=== PATIENT | female | born 1995 | race Caucasian/White ===

== ENCOUNTER 2020-03-06 10:55 | Outpatient (REF) | payer OTHER, SELFPAY | END 2020-03-06 10:56 | disposition home or self-care (01) | LOC: HO.LAB 10:55 | PROVIDERS: PCP Internal Medicine; Visit Provider Internal Medicine | DX: Z20.828 Contact with and (suspected) exposure to other viral communicable diseases (principal) | CPT/HCPCS: C9803; U0003 ==

== ENCOUNTER 2021-03-26 11:15 | Outpatient (REF) | payer OTHER, SELFPAY | END 2021-03-26 11:16 | disposition home or self-care (01) | LOC: HO.HMGCLDS 11:15 | PROVIDERS: Visit Provider Internal Medicine | DX: Z20.822 Contact with and (suspected) exposure to COVID-19 (principal) | CPT/HCPCS: C9803; U0003; U0005 ==

== ENCOUNTER 2022-01-21 17:25 | Emergency (ER) | payer SELFPAY ==
--- NOTE | ~2022-01-21 | CT_ITS ---
EXAMINATION: CT ABDOMEN AND PELVIS WITH CONTRAST CLINICAL INFORMATION: Left CVA tenderness and lower quadrant pain COMPARISON: Pelvic ultrasound from earlier today TECHNIQUE: Multidetector volumetric images were obtained from the superior aspect of the liver through the pubic symphysis following administration 85 mL of Omnipaque 350 intravenous contrast. Sagittal and coronal reformatted images were obtained on the technologist's workstation. Oral contrast: No This CT examination was performed using dose optimization techniques as appropriate, variously including the following: *Automated exposure control *Adjustment of mA and/or kV according to patient size (this includes techniques or standardized protocols for targeted exams where dose is matched to indication/reason for exam; i.e. extremities or head) *Use of iterative reconstruction technique DLP: 503 mGy-cm FINDINGS: LUNG BASES: The visualized lung bases are unremarkable. LIVER, GALLBLADDER, AND BILIARY TREE: The liver is normal in size, shape, and attenuation. No focal hepatic lesion or biliary ductal dilatation is present. The gallbladder is unremarkable with no evidence of radiopaque gallstones, gallbladder wall thickening, or obvious pericholecystic inflammatory changes. PANCREAS: Unremarkable. SPLEEN: Unremarkable. ADRENAL GLANDS: Unremarkable. KIDNEYS AND URETERS: The kidneys are normal in size, shape, and attenuation. No hydronephrosis, hydroureter, or calculi seen. No perinephric stranding. BLADDER: Mild mural prominence, which could be due to underdistention though cystitis cannot be excluded. GASTROINTESTINAL TRACT: No evidence of bowel obstruction or significant wall thickening. Appendix appears nondilated. No free fluid or free air is seen. ABDOMINAL WALL: No significant hernia is appreciated. LYMPH NODES: Normal. VASCULAR: Unremarkable. PELVIC VISCERA: Unremarkable. OSSEOUS STRUCTURES: Unremarkable. CT/CT abdomen pelvis w IV con IMPRESSION: Mild mural prominence of the urinary bladder, which could be due to underdistention though cystitis cannot be excluded; correlation with urinalysis is recommended. No additional acute findings identified in the abdomen/pelvis.
--- NOTE | ~2022-01-21 | US_ITS ---
EXAMINATION: US PELVIS CLINICAL INFORMATION: Left lower quadrant pain, rule out torsion COMPARISON: None TECHNIQUE: Ultrasound of the pelvis is performed using both transabdominal and transvaginal transducers along with Doppler. Transvaginal imaging is performed due to inadequate visualization transabdominally. FINDINGS: Uterus: The uterus is anteverted and measures 6.2 x 3.8 x 4.5 cm. The double wall endometrial thickness is 0.6 cm. The uterus is smooth in contour and has normal myometrial echogenicity. No visible fibroid. Adnexa: Both ovaries are visualized. Normal arterial and venous waveforms noted in the bilateral ovaries. Trace nonspecific pelvic free fluid noted. Right ovary measures 3.0 x 1.8 x 2.1 and appears unremarkable with dominant follicles noted. Left ovary measures 4.0 x 1.2 x 2.5 and appears unremarkable with dominant follicle is noted. US/US pelvic ovarian doppler IMPRESSION: Trace nonspecific pelvic free fluid, which may be physiologic. No additional acute findings identified.
--- NOTE | ~2022-01-21 | US_ITS ---
EXAMINATION: US PELVIS CLINICAL INFORMATION: Left lower quadrant pain, rule out torsion COMPARISON: None TECHNIQUE: Ultrasound of the pelvis is performed using both transabdominal and transvaginal transducers along with Doppler. Transvaginal imaging is performed due to inadequate visualization transabdominally. FINDINGS: Uterus: The uterus is anteverted and measures 6.2 x 3.8 x 4.5 cm. The double wall endometrial thickness is 0.6 cm. The uterus is smooth in contour and has normal myometrial echogenicity. No visible fibroid. Adnexa: Both ovaries are visualized. Normal arterial and venous waveforms noted in the bilateral ovaries. Trace nonspecific pelvic free fluid noted. Right ovary measures 3.0 x 1.8 x 2.1 and appears unremarkable with dominant follicles noted. Left ovary measures 4.0 x 1.2 x 2.5 and appears unremarkable with dominant follicle is noted. US/US pelvic and transvaginal IMPRESSION: Trace nonspecific pelvic free fluid, which may be physiologic. No additional acute findings identified.
[2022-01-21 17:39] VITALS: BP 124/61; PULSE 88; RESP 18; TEMP 37.2; O2SAT 98; BMI 26.6
[2022-01-21 17:51] LABS: Basophils Percent Auto 0.6 % (0-2); Eosinophils Absolute Auto 0.1 X10*3/uL (0.0-0.4); Eosinophils Percent Auto 0.7 % (0-4); Hematocrit 41.3 % (37.0-47.0); Hemoglobin 14.2 g/dl (12.0-16.0); Imm Gran Abs Auto 0.02 X10*3/uL (0.00-0.03); Imm Gran Pct Auto 0.3 % (0.0-0.4); Lymphocytes Percent Auto 41.7 % (20-40); MANUAL DIFF FLAG NO; Mean Corpuscular HGB Conc 34.4 g/dl (31.0-35.0); Mean Corpuscular Hemoglobin 31.5 pg (27.0-33.0); Mean Corpuscular Volume 91.6 fL (80.0-98.0); Mean Platelet Volume 9.7 fL (9.4-12.3); Monocytes Absolute Auto 0.5 X10*3/uL (0.1-1.2); Monocytes Percent Auto 7.4 % (2-11); Neutrophils Absolute Auto 3.5 x10*3/uL (2.0-8.3); Neutrophils Percent Auto 49.3 % (45-73); Platelet Count 294 X10*3/uL (160-400); Red Blood Count 4.51 X10*6/uL (4.20-5.50); Red Cell Distribution Width 11.9 % (11.0-16.0); White Blood Count 7.2 X10*3/uL (4.8-10.8)
[2022-01-21 18:23] LABS: Alanine Aminotransferase 19 U/L (0-31); Albumin Level 4.6 g/dL (3.5-5.0); Alkaline Phosphatase 52 U/L (39-117); Anion Gap 18 (12-20); Aspartate Amino Transferase 25 U/L (5-31); Bilirubin Direct < 0.2 mg/dL (0.0-0.5); Bilirubin Total 0.3 mg/dL (0.0-1.0); Blood Urea Nitrogen 13 mg/dL (9-16); Calcium 9.9 mg/dL (8.4-10.2); Carbon Dioxide 21 mmol/L (22-29); Chloride 105 mmol/L (96-108); Creatinine Clr Calc Pharmacy 111.9; Estimated Glomerular Filt Rate > 60; Glucose Random 88 mg/dL (60-115); Lipase 62 U/L (8-78); Potassium 3.8 mmol/L (3.3-5.1); Sodium 140 mmol/L (135-145); Total Protein 7.9 g/dL (6.5-8.0)
[2022-01-21 18:29] LABS: HCG Quantitative < 2 mIU/mL
[2022-01-21 22:45] VITALS: BP 118/66; PULSE 82; RESP 20; TEMP 37.1; O2SAT 99
[2022-01-21 23:22] LABS: Appearance Urine Clear; Color Urine Yellow; Glucose Urine UA Negative (Negative); Leukocyte Esterase Urine Negative (Negative); Nitrite Urine Negative (Negative); PH 6.5 (5.0-9.0); Specific Gravity - Urine <= 1.005 (1.005-1.025); Urine Blood Negative (Negative); Urine Ketones Negative (Negative); Urine Protein Negative (Neg-Trace)
[2022-01-21 23:25] VITALS: BP 117/84; PULSE 70; RESP 16; TEMP 36.8; O2SAT 99
[2022-01-21 23:25] LABS: UPreg QC Valid YES; Urine Pregnancy NEGATIVE (NEGATIVE)
--- OUTSIDE RECORDS SUMMARY | 2022-01-21 23:36 | XMS_ITS | Continuity of Care Document ---
:1995 Author Organization [facility] Address [address] [place] [id number]- Care Team Providers Name Role Phone Lyubov Priest DO Primary Care Physician Encounter [facility] Date(s): 03/17/19 - 03/17/[address] [address]- [facility] Attending Physician: Lyubov Priest DO Allergies, Adverse Reactions, Alerts Substance Reaction Severity Status NKA Active
--- NOTE | 2022-01-21 23:40 | ED_ITS ---
HPI - Abdominal Pain General Chief Complaint: Abdominal Pain <ROLLY Chin - Last Filed: 01/22/22 02:37> Stated Complaint: Anxiety, depression,abd pain <ROLLY Chin - Last Filed: 01/22/22 02:37> Time Seen by Provider: 01/21/22 23:37 <ROLLY Chin - Last Filed: 01/22/22 02:37> Source: patient <ROLLY Chin - Last Filed: 01/22/22 02:37> Mode of arrival: ambulatory <ROLLY Chin Last Filed: 01/22/22 02:37> Limitations: no limitations <ROLLY Chin - Last Filed: 01/22/22 02:37> History of Present Illness HPI narrative: Time a 6-year-old female with no pertinent past medical history presents to the emergency department progressively worsening left lower quadrant abdominal pain. Patient describes the pain as sharp pain that radiates to her pelvic area as well as left flank. Patient states she has been experiencing this pain for the last 3 months however it has been progressively worsening over the past few days. She rates her current pain as a 9/10. Patient states she has been seeing a provider at [facility] and was diagnosed last Thursday with PID in which she was given antibiotics. However she states that the pain is still occurring and worse today. Additionally patient reports nausea, headaches, dizziness, weakness, subjective fevers. Patient reports that her periods over the last 3 months have been heavier as well as she has been spotting. Patient reports she was last sexually active 1 month ago, and has since been tested for STDs that came back negative. Patient reports yesterday she experienced a creamy discharge with no odor. Patient extremely tearful, and anxious secondary to pain. Denies SI, HI. Denies visual, auditory and tactile hallucinations. Tells me this pain is scaring her. Denies chest pain, shortness of breath, vomiting, diarrhea, constipation, vaginal bleeding, pain w/ intercourse. <ROLLY Chin Last Filed: 01/22/22 02:37> MD elicited complaint: abdominal pain <ROLLY Chin - Last Filed: 01/22/22 02:37> Related Data Home Medications: Previous Rx's Medication Instructions Recorded morphine 15 mg immediate release 15 mg PO Q4-6H PRN pain #10 tabs 01/22/22 tablet ondansetron 4 mg disintegrating 4 mg PO Q6-8H PRN nausea and 01/22/22 tablet vomiting #14 tabs <ROLLY Chin - Last Filed: 01/22/22 02:37> Allergies/Adverse Reactions: Allergies Allergy/AdvReac Type Severity Reaction Status Date / Time No Known Allergies Allergy Unverified 12/08/19 18:33 <ROLLY Chin Last Filed: 01/22/22 02:37> Review of Systems Review of Systems Constitutional : No Weight loss, + Fever, + Chills, No Fatigue, No Malaise ENT/Mouth : No sore throat, No Rhinorrhea Eyes: No Eye Pain, No Swelling, No Redness Cardiovascular : No Chest Pain, No SOB, No Dyspnea on Exertion, No Orthopnea, No Edema, No Palpitations Respiratory : No Cough, No Sputum, No Wheezing Gastrointestinal : No Nausea, No Vomiting, No Diarrhea, No Constipation, + abdominal Pain, No Hematochezia, No Melena Genitourinary : No Dysuria, No Urinary Frequency, No Hematuria, Musculoskeletal : No joint pain, No Myalgias, No Joint Swelling Skin : No Skin Lesions, No rash Neuro : + Weakness, No Numbness, + Dizziness, + Headache Psych : + Anxiety/Panic, No Depression All other systems reviewed and are negative <ROLLY Chin Last Filed: 01/22/22 02:37> Yes all other systems are reviewed and are negative <ROLLY Chin - Last Filed: 01/22/22 02:37> [facility] Past Medical History Attestation statement: The following information was validated with the patient. <ROLLY Chin - Last Filed: 01/22/22 02:37> Source: old records reviewed and nursing notes reviewed <ROLLY Chin Last Filed: 01/22/22 02:37> Social History Social History: Social History Smoked in Last 30 Days: Yes Use of substances other than those prescribed or required for medical reasons: Yes Substance Use Type: Marijuana Advance Directives: No Advance Directives Information Provided: No Patient : No <ROLLY Chin - Last Filed: 01/22/22 02:37> Physical Exam ED Vital Signs: Vital Signs - 24 hr 01/21/22 17:39 01/21/22 22:45 01/21/22 23:25 Temperature 98.9 F 98.8 F 98.2 F Pulse Rate 88 82 70 Respiratory Rate 18 20 16 Blood Pressure 124/61 118/66 117/84 Pulse Oximetry 98 99 99 Oxygen Delivery Method Room Air Room Air Room Air 01/22/22 00:34 01/22/22 01:12 01/22/22 04:06 Temperature 98.1 F 97.9 F Pulse Rate 70 76 Respiratory Rate 22 H 20 22 H Blood Pressure 117/84 114/65 Pulse Oximetry 99 100 Oxygen Delivery Method Room Air Room Air BMI result Body Mass Index 26.6 vss <ROLLY Chin - Last Filed: 01/22/22 02:37> Vital Signs - 24 hr 01/21/22 17:39 01/21/22 22:45 01/21/22 23:25 Temperature 98.9 F 98.8 F 98.2 F Pulse Rate 88 82 70 Respiratory Rate 18 20 16 Blood Pressure 124/61 118/66 117/84 Pulse Oximetry 98 99 99 Oxygen Delivery Method Room Air Room Air Room Air 01/22/22 00:34 01/22/22 01:12 01/22/22 04:06 Temperature 98.1 F 97.9 F Pulse Rate 70 76 Respiratory Rate 22 H 20 22 H Blood Pressure 117/84 114/65 Pulse Oximetry 99 100 Oxygen Delivery Method Room Air Room Air BMI result Body Mass Index 26.6 <Samir Sharp MD - Last Filed: 01/22/22 05:54> Appearance: Alert.? Oriented X3.? No acute distress.? Patient id extremely anxious, tearful. Head: Normocephalic, atraumatic, no step-offs or deformities Eyes: Pupils equal, round and reactive to light.? CVS: Normal heart rate and rhythm.? Pulses normal.? Respiratory: No respiratory distress.? Breath sounds normal.? Abdomen: Soft, nondistended. Tenderness upon palpation to LLQ? Skin: Skin warm and dry.? Normal skin color.? Normal skin turgor.? Extremities: No lower extremity edema.? No calf ttp. 5/5 strength to bilateral upper and lower extremities Sensative: Normal external genitalia, no low lumps masses or lesions. Normal vaginal canal and cervix. Cervical os closed. No lumps or masses. Patient reports discomfort with pelvic exam and bimanual bilaterally. Scant amount of clear, discharge in vaginal canal. Neuro: Oriented X 3.? No motor deficit.? No sensory deficit. CN 2-12 intact. Normal finger-to nose. <ROLLY Chin - Last Filed: 01/22/22 02:37> Course Reevaluation(s) Reevaluation #1: CBC appears to be within normal limits. Chemistry with no acute electrolyte abnormalities requiring intervention. Normal lipase. Beta hCG negative unlikely that this is an ectopic . UA clean without infection. Swabs for chlamydia, gonorrhea, BV, Trichomonas, Flora were obtained and are pending. Abdominal CT and pelvic ultrasound pending at this time. <ROLLY Chin - Last Filed: 01/22/22 02:37> Time: 01:16 <ROLLY Chin - Last Filed: 01/22/22 02:37> Reevaluation #2: Patient's pain well controlled. Patient no longer crying or screaming out in pain. Sign-out will be given to Dr.Sciaruto coats pending at this time. Disposition pending imaging and re-evaluation. <RLOLY Chin - Last Filed: 01/22/22 02:37> Time: 02:30 <ROLLY Chin Last Filed: 01/22/22 02:37> Reevaluation #3: The patient got some relief with the 2 doses of morphine (4 mg and 2 mg) however her pain was still 6/10 therefore she was ordered to get morphine 4 mg IV and Zofran 4 mg IV. I did discuss the negative workup with the patient and she became very frustrated and very tearful since there was no clear cause for her pain. The patient will be discharged home and was advised to take Tylenol and ibuprofen and for pain not relieved by these medications she was prescribed morphine. She was also prescribe Zofran for nausea and vomiting. She will be referred to her our macaroni maker, Dr. Leary for further evaluation. <Samir Sharp MD - Last Filed: 01/22/22 05:54> Time: 05:53 <Samir Sharp MD - Last Filed: 01/22/22 05:54> MDM - Abdominal Pain MDM Narrative Medical decision making narrative: 1141 26-year-old female presents to the emergency department with progressively worsening left lower quadrant pain radiating to left flank and pelvic region over the last few days. Physical exam reveals normal rate and rhythm, lungs clear to auscultation bilaterally, abdomen soft nondistended tender to lower left quadrant. Positive left CVA tenderness to the left hand side. Pelvic exam/sensitive exam with no acute findings other than patient reports discomfort with pelvic exam and bimanual. Unable to palpate any lumps or masses. Scant amount of normal color discharge within the vaginal canal. Patient appears extremely anxious, tearful upon my exam. Plan at this time is to rule out ovarian torsion, ectopic , ovarian cysts, intra-abdominal processes. Unlikely that this is acute abdomen, kidney stones. Will rule out UTI as well. As well as electrolyte abnormalities. Suspected anxiety. Plan at this time is to obtain basic labs, imaging, urine, swabs for gonorrhea, chlamydia, bacterial vaginosis, Trichomonas. <ROLLY Chin - Last Filed: 01/22/22 02:37> Medical Records Attestation: I reviewed the patient's medical records. <ROLLY Chin - Last Filed: 01/22/22 02:37> Lab Data Attestation: I reviewed the patient's lab results. <ROLLY Chin - Last Filed: 01/22/22 02:37> Result diagrams: : 01/21/22 17:46 01/21/22 17:46 <ROLLY Chin - Last Filed: 01/22/22 02:37> Labs: Lab Results 01/21/22 01/21/22 01/21/22 Range/Units 17:46 17:46 23:14 WBC 7.2 (4.8-10.8) X10*3/uL RBC 4.51 (4.20-5.50) X10*6/uL Hgb 14.2 (12.0-16.0) g/dl Hct 41.3 (37.0-47.0) % MCV 91.6 (80.0-98.0) fL MCH 31.5 (27.0-33.0) pg MCHC 34.4 (31.0-35.0) g/dl RDW 11.9 (11.0-16.0) % Plt Count 294 (160-400) X10*3/uL MPV 9.7 (9.4-12.3) fL Immature Gran % (Auto) 0.3 (0.0-0.4) % Neut % (Auto) 49.3 (45-73) % Lymph % (Auto) 41.7 H (20-40) % [place] % (Auto) 7.4 (2-11) % Eos % (Auto) 0.7 (0-4) % Baso % (Auto) 0.6 (0-2) % Lymph # (Auto) 3.0 (1.2-4.9) X10*3/uL [place] # (Auto) 0.5 (0.1-1.2) X10*3/uL Eos # (Auto) 0.1 (0.0-0.4) X10*3/uL Baso # (Auto) 0.0 (0.0-0.2) X10*3/uL Abs Immat Gran (auto) 0.02 (0.00-0.03) X10*3/uL Absolute Neuts (auto) 3.5 (2.0-8.3) x10*3/uL Absolute Nucleated RBC 0.000 (0.0-0.012) X10*3/uL Nucleated RBC % (auto) 0.0 (0.0-0.2) /100WBC Sodium 140 (135-145) mmol/L Potassium 3.8 (3.3-5.1) mmol/L Chloride 105 (96-108) mmol/L Carbon Dioxide 21 L (22-29) mmol/L Anion Gap 18 (12-20) BUN 13 (9-16) mg/dL Creatinine 0.76 (0.5-1.4) mg/dL Estim Creat Clear Calc 111.9 Estimated GFR > 60 Random Glucose 88 (60-115) mg/dL Calcium 9.9 (8.4-10.2) mg/dL Total Bilirubin 0.3 (0.0-1.0) mg/dL Direct Bilirubin < 0.2 (0.0-0.5) mg/dL AST 25 (5-31) U/L ALT 19 (0-31) U/L Alkaline Phosphatase 52 (39-117) U/L Total Protein 7.9 (6.5-8.0) g/dL Albumin 4.6 (3.5-5.0) g/dL Lipase 62 (8-78) U/L Beta HCG, Quant < 2 mIU/mL Urine Color Yellow Urine Appearance Clear Urine pH 6.5 (5.0-9.0) Ur Specific Liberal <= 1.005 (1.005-1.025) Urine Protein Negative (Neg-Trace) mg/dL Urine Glucose (UA) Negative (Negative) mg/dL Urine Ketones Negative (Negative) mg/dL Urine Blood Negative (Negative) Urine Nitrite Negative (Negative) Ur Leukocyte Esterase Negative (Negative) Urine Test (NEGATIVE) 01/21/22 Range/Units 23:14 WBC (4.8-10.8) X10*3/uL RBC (4.20-5.50) X10*6/uL Hgb (12.0-16.0) g/dl Hct (37.0-47.0) % MCV (80.0-98.0) fL MCH (27.0-33.0) pg MCHC (31.0-35.0) g/dl RDW (11.0-16.0) % Plt Count (160-400) X10*3/uL MPV (9.4-12.3) fL Immature Gran % (Auto) (0.0-0.4) % Neut % (Auto) (45-73) % Lymph % (Auto) (20-40) % [place] % (Auto) (2-11) % Eos % (Auto) (0-4) % Baso % (Auto) (0-2) % Lymph # (Auto) (1.2-4.9) X10*3/uL [place] # (Auto) (0.1-1.2) X10*3/uL Eos # (Auto) (0.0-0.4) X10*3/uL Baso # (Auto) (0.0-0.2) X10*3/uL Abs Immat Gran (auto) (0.00-0.03) X10*3/uL Absolute Neuts (auto) (2.0-8.3) x10*3/uL Absolute Nucleated RBC (0.0-0.012) X10*3/uL Nucleated RBC % (auto) (0.0-0.2) /100WBC Sodium (135-145) mmol/L Potassium (3.3-5.1) mmol/L Chloride (96-108) mmol/L Carbon Dioxide (22-29) mmol/L Anion Gap (12-20) BUN (9-16) mg/dL Creatinine (0.5-1.4) mg/dL Estim Creat Clear Calc Estimated GFR Random Glucose (60-115) mg/dL Calcium (8.4-10.2) mg/dL Total Bilirubin (0.0-1.0) mg/dL Direct Bilirubin (0.0-0.5) mg/dL AST (5-31) U/L ALT (0-31) U/L Alkaline Phosphatase (39-117) U/L Total Protein (6.5-8.0) g/dL Albumin (3.5-5.0) g/dL Lipase (8-78) U/L Beta HCG, Quant mIU/mL Urine Color Urine Appearance Urine pH (5.0-9.0) Ur Specific Liberal (1.005-1.025) Urine Protein (Neg-Trace) mg/dL Urine Glucose (UA) (Negative) mg/dL Urine Ketones (Negative) mg/dL Urine Blood (Negative) Urine Nitrite (Negative) Ur Leukocyte Esterase (Negative) Urine Test NEGATIVE (NEGATIVE) <ROLLY Chin - Last Filed: 01/22/22 02:37> Lab Results 01/21/22 01/21/22 01/21/22 Range/Units 17:46 17:46 23:14 WBC 7.2 (4.8-10.8) X10*3/uL RBC 4.51 (4.20-5.50) X10*6/uL Hgb 14.2 (12.0-16.0) g/dl Hct 41.3 (37.0-47.0) % MCV 91.6 (80.0-98.0) fL MCH 31.5 (27.0-33.0) pg MCHC 34.4 (31.0-35.0) g/dl RDW 11.9 (11.0-16.0) % Plt Count 294 (160-400) X10*3/uL MPV 9.7 (9.4-12.3) fL Immature Gran % (Auto) 0.3 (0.0-0.4) % Neut % (Auto) 49.3 (45-73) % Lymph % (Auto) 41.7 H (20-40) % [place] % (Auto) 7.4 (2-11) % Eos % (Auto) 0.7 (0-4) % Baso % (Auto) 0.6 (0-2) % Lymph # (Auto) 3.0 (1.2-4.9) X10*3/uL [place] # (Auto) 0.5 (0.1-1.2) X10*3/uL Eos # (Auto) 0.1 (0.0-0.4) X10*3/uL Baso # (Auto) 0.0 (0.0-0.2) X10*3/uL Abs Immat Gran (auto) 0.02 (0.00-0.03) X10*3/uL Absolute Neuts (auto) 3.5 (2.0-8.3) x10*3/uL Absolute Nucleated RBC 0.000 (0.0-0.012) X10*3/uL Nucleated RBC % (auto) 0.0 (0.0-0.2) /100WBC Sodium 140 (135-145) mmol/L Potassium 3.8 (3.3-5.1) mmol/L Chloride 105 (96-108) mmol/L Carbon Dioxide 21 L (22-29) mmol/L Anion Gap 18 (12-20) BUN 13 (9-16) mg/dL Creatinine 0.76 (0.5-1.4) mg/dL Estim Creat Clear Calc 111.9 Estimated GFR > 60 Random Glucose 88 (60-115) mg/dL Calcium 9.9 (8.4-10.2) mg/dL Total Bilirubin 0.3 (0.0-1.0) mg/dL Direct Bilirubin < 0.2 (0.0-0.5) mg/dL AST 25 (5-31) U/L ALT 19 (0-31) U/L Alkaline Phosphatase 52 (39-117) U/L Total Protein 7.9 (6.5-8.0) g/dL Albumin 4.6 (3.5-5.0) g/dL Lipase 62 (8-78) U/L Beta HCG, Quant < 2 mIU/mL Urine Color Yellow Urine Appearance Clear Urine pH 6.5 (5.0-9.0) Ur Specific Liberal <= 1.005 (1.005-1.025) Urine Protein Negative (Neg-Trace) mg/dL Urine Glucose (UA) Negative (Negative) mg/dL Urine Ketones Negative (Negative) mg/dL Urine Blood Negative (Negative) Urine Nitrite Negative (Negative) Ur Leukocyte Esterase Negative (Negative) Urine Test (NEGATIVE) 01/21/22 Range/Units 23:14 WBC (4.8-10.8) X10*3/uL RBC (4.20-5.50) X10*6/uL Hgb (12.0-16.0) g/dl Hct (37.0-47.0) % MCV (80.0-98.0) fL MCH (27.0-33.0) pg MCHC (31.0-35.0) g/dl RDW (11.0-16.0) % Plt Count (160-400) X10*3/uL MPV (9.4-12.3) fL Immature Gran % (Auto) (0.0-0.4) % Neut % (Auto) (45-73) % Lymph % (Auto) (20-40) % [place] % (Auto) (2-11) % Eos % (Auto) (0-4) % Baso % (Auto) (0-2) % Lymph # (Auto) (1.2-4.9) X10*3/uL [place] # (Auto) (0.1-1.2) X10*3/uL Eos # (Auto) (0.0-0.4) X10*3/uL Baso # (Auto) (0.0-0.2) X10*3/uL Abs Immat Gran (auto) (0.00-0.03) X10*3/uL Absolute Neuts (auto) (2.0-8.3) x10*3/uL Absolute Nucleated RBC (0.0-0.012) X10*3/uL Nucleated RBC % (auto) (0.0-0.2) /100WBC Sodium (135-145) mmol/L Potassium (3.3-5.1) mmol/L Chloride (96-108) mmol/L Carbon Dioxide (22-29) mmol/L Anion Gap (12-20) BUN (9-16) mg/dL Creatinine (0.5-1.4) mg/dL Estim Creat Clear Calc Estimated GFR Random Glucose (60-115) mg/dL Calcium (8.4-10.2) mg/dL Total Bilirubin (0.0-1.0) mg/dL Direct Bilirubin (0.0-0.5) mg/dL AST (5-31) U/L ALT (0-31) U/L Alkaline Phosphatase (39-117) U/L Total Protein (6.5-8.0) g/dL Albumin (3.5-5.0) g/dL Lipase (8-78) U/L Beta HCG, Quant mIU/mL Urine Color Urine Appearance Urine pH (5.0-9.0) Ur Specific Liberal (1.005-1.025) Urine Protein (Neg-Trace) mg/dL Urine Glucose (UA) (Negative) mg/dL Urine Ketones (Negative) mg/dL Urine Blood (Negative) Urine Nitrite (Negative) Ur Leukocyte Esterase (Negative) Urine Test NEGATIVE (NEGATIVE) <Samir Sharp MD - Last Filed: 01/22/22 05:54> Critical Care Time Critical Care Time Critical Care Time: No <ROLLY Chin - Last Filed: 01/22/22 02:37> Discharge Plan Discharge Clinical Impression: Abdominal pain, Anxiety, Cystitis <ROLLY Chin - Last Filed: 01/22/22 02:37> Patient Disposition: Home, Self-Care <ROLLY Chin - Last Filed: 01/22/22 02:37> Instructions: Abdominal Pain (ED), Anxiety (ED) <ROLLY Chin - Last Filed: 01/22/22 02:37> Additional Instructions: You had the following tests which were normal: Complete blood count, comprehensive metabolic panel, lipase, urinalysis. Your urine was sent for Flora chlamydia, Gardnerella, gonorrhea and Trichomonas. These tests are pending and you can check these results on the patient portal or your doctor can get these results for you. Your CT scan of the abdomen pelvis did not reveal a clear cause for your pain, there was some thickening of the wall of the bladder which is nonspecific. Your pelvic ultrasound revealed trace amount of free fluid in the pelvis which is nonspecific with no other abnormal findings. At this time, I do not have a clear cause for your pain. I also want you to follow-up with our gynecology, Dr. Leary to see if he can determine the cause of your pain. Take ibuprofen 200 mg pills, 3 pills every 6 hours as needed for pain. Take Tylenol (acetaminophen) 2 pills every 4-6 hours as needed for pain. For pain not relieved by ibuprofen or Tylenol take morphine 15 mg pills, 1 pill every 4 hours as needed for pain. This medication will make you sleepy, do not drive or work while taking this medication. Morphine is a narcotic medication and can be addicting. If you are concerned about addiction you can ask the pharmacist for less pills or do not get this prescription filled. Take Zofran ODT 4 mg pills, 1 pill dissolved in your mouth every 8 hours as needed for nausea and vomiting. Follow-up with your doctor in 2 days. Please return to the emergency department if your symptoms get worse or if you develop any symptoms that are concerning to you. <ROLLY Chin - Last Filed: 01/22/22 02:37> Prescriptions: New morphine 15 mg tablet 15 mg PO Q4-6H PRN (Reason: pain) Qty: 10 0RF Rx Instructions: The patient may ask for partial fill; Partial Fill upon patient request. ondansetron 4 mg tablet,disintegrating 4 mg PO Q6-8H PRN (Reason: nausea and vomiting) Qty: 14 0RF <ROLLY Chin Last Filed: 01/22/22 02:37> [place]: [facility] [place]Provider Group] - 1 day Physician,Jeanie Dubois [Primary Care Provider] - 2 days Richard Leary MD [Physician] - 1 week <ROLLY Chin - Last Filed: 01/22/22 02:37> Stand Alone Forms: Work/School Release <ROLLY Chin - Last Filed: 01/22/22 02:37>
[2022-01-22 00:34] VITALS: BP 117/84; PULSE 70; RESP 22; TEMP 36.7; O2SAT 99
[2022-01-22 01:12] VITALS: RESP 20
[2022-01-22] MEDS: Morphine Sulfate 4 MG/ML CARTRIDGE IVPUSH ×2 (01:12→05:58)
[2022-01-22] MEDS: LORazepam 1 MG TABLET PO (01:14)
[2022-01-22] MEDS: iohexoL 350 MG/ML 100 ML INFUS..BTL 85 ML IV (02:30)
[2022-01-22] MEDS: Morphine Sulfate 2 MG/ML CARTRIDGE IVPUSH (04:00)
[2022-01-22 04:06] VITALS: BP 114/65; PULSE 76; RESP 22; TEMP 36.6; O2SAT 100
[2022-01-22] MEDS: ondansetron HCL 4 MG/2 ML VIAL IVPUSH ×2 (04:08→05:59)
[2022-01-22 13:09] LABS: BV Int Neg Control Negative (Negative); BV Int Pos Control Positive (Positive)
[2022-01-22 15:20] LABS: CT PCR NOT DETECTED (Not Detect.); NG PCR NOT DETECTED (Not Detect.)
== END 2022-01-22 06:42 | disposition home or self-care (01) ==
PROVIDERS: Internal Medicine; Physician Assistant; Emergency Provider Emergency Medicine Emergency Medical Services
DX: N30.90 Cystitis, unspecified without hematuria (principal); F41.9 Anxiety disorder, unspecified; R10.9 Unspecified abdominal pain; F32.A Depression, unspecified
CPT/HCPCS: 36415; 74177; 76830; 76856; 80053; 81003; 81025; 82248; 83690; 84702; 85025; 87480; 87491; 87510; 87591; 87660; 93975; 96374; 96375; 96376; 99284; J2270; J2405; Q9967

== ENCOUNTER 2025-02-24 10:54 | Outpatient (AMB) | payer OTHER, SELFPAY ==
--- OUTSIDE RECORDS SUMMARY | 2023-06-11 17:29 | XMS_ITS | Encounter Summary ---
Author Organization [facility] Address [address] [place] [address] Phone Care Team Providers Care Litigation Specialist Name Role Phone VuDaya CNM Primary Care Provider [phone] Encounter Details Date Type Department Care Team (Late st Contact Info) Description 06/11/2023 6:29 PM EDT Hospital Encounter [facility] [address] [place] [address] [phone] Skyler Florian, WEATHER OBSERVER [address] [place] [address] [email or web address] Social History Tobacco Use Types Packs/Day Years Used Date Smoking Tobacco: Never Smokeless Tobacco: Never Alcohol Use Standard Drinks/Week Comments Yes 0 (1 standard drink = 0.6 oz pur e alcohol) Education Answer Date Recorded Are you interested in more education? Not on lyndon e 07/18/2022 Are you concerned about learning? Not on file 07/18/2022 No 07/18/2022 No 07/18/2022 Digital Access Answer Date Recorded No 08/16/2022 No 08/16/2022 Reliable internet access at home? Not on file 08/16/2022 Device with a working camera? Not on file Education Answer Date Recorded What is the highest level of school you have completed or the highest degree you have received? 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 Narrative 06/11/2023 6:56 PM EDT XR ANKLE 3 OR MORE VIEWS (RIGHT), XR FOOT 3 OR MORE VIEWS (RIGHT) Referring clinician's provided indication for this examination in [facility]: S/P Fall; inversion 6-7 days ago. Pain at lateral malleolus and 5th metatarsal. COMPARISON: None FINDINGS: No fracture. Normal alignment. Symmetric ankle mortise. Normal joint spaces. No soft tissue swelling or ankle effusion. Procedure Note Renea Mckeon MD - 06/11/2023 XR ANKLE 3 OR MORE VIEWS (RIGHT), XR FOOT 3 OR MORE VIEWS (RIGHT) Referring clinician's provided indication for this examination in Epic:S/P Fall; inversion 6-7 days ago. Pain at lateral malleolus and 5thmetatarsal. COMPARISON: None FINDINGS: No fracture. Normal alignment. Symmetric ankle mortise. Normal jointspaces. No soft tissue swelling or ankle effusion. IMPRESSION: No fracture or dislocation. Skyler Florian WEATHER OBSERVER IMG XR LOWER EXTREMITY Final Result documented in this encounter Visit Diagnoses Not on filedocumented in this encounter Additional Health Concerns Assessment Noted Time PHQ-9 Depression Total Score: 13 10/13/ 019 3:38 PM EDT PHQ-2 Depression Total Score: 4 10/14/19 19 3:38 PM EDT documented as of this encounter Care Teams Litigation Specialist Relationship Specialty Start Date End Date Daya Vu CNM [address] [place] [phone] PCP - General 06/11/23 11/05/23 documented as of this encounter Additional Source Comments The information contained in this document represents components of the legal health record. It is not the complete legal health record.[facility]
--- OUTSIDE RECORDS SUMMARY | 2023-06-11 17:30 | XMS_ITS | Encounter Summary ---
Author Organization 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 Narrative 06/11/2023 6:56 PM EDT XR ANKLE 3 OR MORE VIEWS (RIGHT), XR FOOT 3 OR MORE VIEWS (RIGHT) Referring clinician's provided indication for this examination in [facility]: S/P Fall; inversion 6-7 days ago. Pain [...] IMPRESSION: No fracture or dislocation. Skyler Florian INSURANCE UNDERWRITER SALES IMG XR LOWER EXTREMITY Final Result documented in this encounter Visit Diagnoses Not on filedocumented in this encounter Additional Health Concerns Assessment Noted Time PHQ-9 Depression Total Score: 13 10/13/ 019 3:38 PM EDT PHQ-2 Depression Total Score: 4 10/14/19 19 3:38 PM EDT documented as of this encounter Care Teams Crossbow Maker Relationship Specialty Start Date End Date Daya Vu CNM [address] [place] [address] PCP - General 06/11/23 11/05/23 documented as of this encounter Additional Source Comments The information contained in this document represents components of the legal health record. It is not the complete legal health record.[facility]
--- NOTE | 2025-02-24 10:57 | A.PHYSOV ---
Vital Signs 02/24/25 10:57 Height 5 ft 5 in Weight 180 lb BMI 30.0 Intake Visit Reasons: Wants injection- different symptoms Intake Note: Patient is a 29 year old female here today for re-evaluation for neck pain. Embedded Firmware Developer Required: No Allergies amitriptyline Allergy (Unknown, Verified 02/24/25 11:02) Unknown aspartame Allergy (Unknown, Verified 02/24/25 11:02) Unknown cyclobenzaprine Allergy (Unknown, Verified 02/24/25 11:02) Unknown lamotrigine (From Lamictal) Allergy (Unknown, Verified 02/24/25 11:02) Unknown naproxen Allergy (Unknown, Verified 02/24/25 11:02) Unknown venlafaxine (From Effexor) Allergy (Unknown, Verified 02/24/25 11:02) Unknown HPI Comments Details: History of Present Illness The patient is a 29 year old female presenting for follow-up of chronic neck and arm pain, which she reports has worsened following a recent epidural injection. She describes a constant aching pain, stiffness between the shoulder blades, and a feeling of tension trapping her nerves. The pain was previously more prominent on the left side but has increasingly involved the right side over the past year. The patient's symptoms are significantly impacting her activities of daily living, including driving and computer use, which affects her job performance. Her sleep is disturbed, and she wakes with numb arms. She reports feeling overwhelmed and frustrated, expressing fear about becoming disabled. Past interventions include physical therapy, which she felt did not help and only made her feel weak. She reports the most significant relief came from a prior cortisone shot, while trigger point injections provided minimal benefit. She takes tizanidine intermittently, about every three days, but finds it causes significant next-day fatigue that impacts her ability to wake up for work. She has previously tried gabapentin, which she felt affected her mood, and has also tried turmeric. Relevant history includes a normal EMG performed about five years ago and a cervical MRI completed in March of the current year. The patient also has a history of Lyme disease. Pain Description - Onset/Timing: The patient reports chronic pain for five years which has worsened since a recent epidural injection, with throbbing that is more pronounced towards the end of the day. - Quality/Character: The pain is described as aching, stiff, sore, and tense. - Location/Radiation: The pain is located in her neck, between the shoulder blades, and radiates into her arms and hands, primarily on the left but increasingly on the right. - Exacerbating Factors: Pain is worsened by using her arms, driving, computer work, turning her head, and neck flexion/extension. - Relieving Factors: A prior cortisone injection provided the most relief. - Interference with Activities: The pain interferes with her ability to work, sleep, drive, and perform daily tasks like laundry. Procedure: Left C2-3, C3-4, C4-5 facet injection 07/12/2019 Left upper trapezius or rhomboid trigger point injection 12/01/2023 Left occipital nerve block 05/27/2024 Results - Imaging: Cervical spine MRI was performed on April 05, 2024 and is less than one year old. - Tests and Diagnostics: An EMG performed approximately five years ago was normal. [facility] Social History Alcohol intake: current Alcohol intake frequency: holidays/special occasions only Patient Tobacco Use Status: Never used Tobacco Use of substances other than those prescribed or required for medical reasons: Yes Substance Use Type: Marijuana Review of Systems Narrative Review of Systems - Musculoskeletal: Reports aching pain, stiffness, and tension in neck and interscapular region. - Neurological: Reports numbness and weakness in bilateral arms, with pain radiating into her hands. - Psychiatric: Reports feeling overwhelmed, afraid, and frustrated. - Constitutional: Reports fatigue and interrupted sleep. Physical Exam Exam Exam: Physical Exam - General: Patient is alert but emotionally distressed and tearful. - Neck: Tenderness to palpation noted. - Shoulders: Diffuse soreness to palpation bilaterally. - Range of motion: Pain elicited with cervical flexion, extension, and rotation. - Motor: Upper extremity strength is grossly 5/5 with flexion, extension, abduction, adduction, and trial attorney bilaterally, although patient reports subjective weakness and inability to maintain arm elevation. - Sensation: Patient reports subjective altered sensation to light touch on the left arm, described as feeling different or like a dent . Vital Signs: BMI result Body Mass Index 30.0 Assessment & Plan Assessment & Plan (1) Myalgia: Code(s): M79.10 - Myalgia, unspecified site Category: Medical (2) Cervicalgia: Code(s): M54.2 - Cervicalgia Category: Medical Plan Pain Management - Affect: The patient is tearful and reports feeling overwhelmed, frustrated, and afraid of becoming disabled due to her chronic pain. - Analgesia: The patient is taking tizanidine intermittently, approximately every three days. - Adverse Effects: She reports that tizanidine causes significant tiredness, making it difficult for her to wake up in the morning. 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 - Aberrant Drug Related Behaviors: No aberrant drug-related behaviors were noted. Plan Patient was informed and verbally consented to the use of an ambient scribe for clinic note documentation during this visit. 1. Chronic Neck And Arm Pain The patient's chronic pain has worsened since her last epidural injection and has not responded adequately to multiple interventions including physical therapy, various medications, and other injections. Given the limited success of previous treatments and the recent MRI from March, no new imaging is planned at this time. An option for a repeat EMG was discussed to rule out peripheral nerve entrapment such as carpal tunnel syndrome, though the patient believes her symptoms originate from her neck. The plan is for the patient to obtain a second opinion with the supervising physician, Dr. Majano, for a new evaluation and to review her case. The patient was also advised she could speak with her primary care provider about a referral to another specialist. Discussion Notes I had a lengthy discussion with the patient regarding her chronic pain, her frustration with her current quality of life, and her feeling that her symptoms have worsened since the epidural injection. I acknowledged the limitations of the treatments we have tried and expressed that I have exhausted the options I can provide at this time. I explained that while we could order a new EMG, her most recent MRI is less than a year old and unlikely to show catastrophic changes. I recommended she obtain a second opinion from the supervising physician in our office, Dr. Mota, for a fresh set of eyes on her case. I cautioned her that he would likely offer similar interventions, such as medications and injections. I expressed empathy for her difficult situation and acknowledged that unfortunately, we do not always have a definitive solution for chronic pain. Patient Instructions - Please schedule an appointment at the front desk coordinator to see Dr. Majano for a second opinion regarding your pain. - You may also wish to contact your primary care doctor to discuss if there are other types of specialists you could see for your condition. - Continue your current medications as prescribed. Coding Level of Care Code Tele Est Pt Level 3 (78546) Diagnoses Myalgia M79.10 Cervicalgia M54.2
--- OUTSIDE RECORDS SUMMARY | 2025-02-24 13:25 | XMS_ITS | Clinical Summary ---
Author Organization [facility] Address [address] [place] [address] Phone Care Team Providers Care Brush Cleaner Name Role Phone Unavailable Primary Care Provider Unavailabl e Immunizations Immunization Administration Dates Next Due DTP 10/12/1996, 6,1995, 996 DTaP 5 04/14/2000 HPV, Quadrivalent 11/20/2010,11/14/2009,09/06/19 10 Hep B, ped/adol 01/13/1996,1995,1995 Hib (PRP-T) 07/12/1996, 6,1995, 996 IPV 04/14/2000, 7,1995, 996,1995 MMR 04/14/2000,07/12/1996 Meningococcal Conj (Menactra) MCV4P 09/05/2009 Tdap 09/17/2007 Unknown Vaccine 06/07/1999 Varicella 06/10/2000 Family History Relation Name Status Comments Brother Alive Brother: Alive and well Father Alive Father: Alive a nd well Mother Alive Mother: Alive a nd well Social History Tobacco Use Types Packs/Day Years Used Date Smoking Tobacco: Never Assessed Comments Unknown Sex and Gender Information Value Date Recorded Sex Assigned at Not on file Legal Sex Female 4:43 PM EDT Gender Identity Not on file Sexual Orientation Not on file Last Filed Vital Signs Vital Sign Reading Time Taken Comments Blood Pressure 116/77 01/24/2014 12:00 AM EST Pulse 86 01/24/2014 12:00 AM EST Temperature 36.8 C (98.2 F) 01/24/2014 12:00 AM EST Respiratory Rate - - Oxygen Saturation - - Inhaled Oxygen Concentration - - Weight 67.8 kg (149 lb 6.4 oz) 01/24/2014 12:00 AM EST Height 163.1 cm (5' 4.2 ) 01/24/2014 12:00 AM ES T Body Mass Index 25.48 01/24/2014 12:00 AM EST Plan of Treatment Health Maintenance Due Date Last Done Comments Varicella Vaccines (2 of 2 - 2-dose childhood series) 09/02/2000 06/10/2000 DTaP,Tdap,and Td Vaccines (7 - Td or Tdap) 09/16/2017 09/17/2007, 04/14/2000, 10/12/1996, Additional history exists Influenza Vaccines (#1) 2024 COVID-19 Vaccine ( season) 2024 Hepatitis B Vaccines Completed 01/13/1996, 1995, 1995 HIB Vaccines Completed 07/12/1996, 10/22, 1995, Additional history exists IPV Vaccines Completed 04/14/2000, 06/22, 1995, Additional history exists MMR Vaccines Completed 04/14/2000, 07/12/1996 Meningococcal Vaccine Aged Out 09/05/2009 No reji allegra eligible based on patient's age to complete this topic HPV Vaccines Completed 11/20/2010, 10/22, 09/05/2009 Hepatitis A Vaccines Aged Out No long er eligible based on patient's age to complete this topic Men B Vaccine Aged Out No longer elig ible based on patient's age to complete this topic Pneumococcal Vaccine Aged Out No long er eligible based on patient's age to complete this topic
--- OUTSIDE RECORDS SUMMARY | 2025-02-24 13:25 | XMS_ITS | Encounter Summary ---
Author Organization [facility] Address [address] [place] [address] Phone Care Team Providers Care Sand Polisher Name Role Phone Majo Estevez MD Primary Care Provider Encounter Details Date Type Department Care Team (Late st Contact Info) Description 04/19/2013 Documentation [facility] Family Medicine [address] [place] [address] Family Medicine, Physician [address] [place], [place] [id number] Social History Tobacco Use Types Packs/Day Years Used Date Smoking Tobacco: Never Assessed Comments Unknown Sex and Gender Information Value Date Recorded Sex Assigned at Not on file Legal Sex Female 4:43 PM EDT Gender Identity Not on file Sexual Orientation Not on file documented as of this encounter Plan of Treatment Not on file documented as of this encounter Visit Diagnoses Not on filedocumented in this encounter Care Teams Sand Polisher Relationship Specialty Start Date End Date Majo Estevez MD [address] [place] [address] LILY Pisano [address] PCP - General 10/31/16 06/23/22 documented as of this encounter
--- OUTSIDE RECORDS SUMMARY | 2025-02-24 13:25 | XMS_ITS | Encounter Summary ---
Author Organization [facility] Address [address] [place] [address] Phone Care Team Providers Care Furniture Salesperson Name Role Phone Rabia Shafer MD Primary Care Provider Encounter Details Date Type Department Care Team (Late st Contact Info) Description 11/12/2023 Transcribe Orders [facility] Specimen Processing [address] [place] [address] Bertha Delgado, INDEPENDENT VIDEO PRODUCER [address] [place] [address] Other idiopathic peripheral autonomic neuropathy (Primary Dx) Social History Tobacco Use Types Packs/Day Years [...] 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 Not on file Not on lyndon e documented as of this encounter Plan of Treatment Not on file documented as of this encounter Visit Diagnoses Diagnosis Other idiopathic peripheral autonomic neuropathy- Primary documented in this encounter Additional Health Concerns Assessment Noted Time PHQ-9 Depression Total Score: 13 019 3:38 PM EDT PHQ-2 Depression Total Score: 4 10/14/19 19 3:38 PM EDT documented as of this encounter Care Teams Furniture Salesperson Relationship Specialty Start Date End Date Rabia Shafer MD [address] [place] [phone] PCP - General Internal Medicine 11/06/23 documented as of this encounter Additional Source Comments The information contained in this document represents components of the legal health record. It is not the complete legal health record.[facility]
--- OUTSIDE RECORDS SUMMARY | 2025-02-24 13:25 | XMS_ITS | Encounter Summary ---
Author Organization [facility] Address [address] [facility] [address] [place] [address] Phone Care Team Providers Care Contract Accountant Name Role Phone Landon Sprague MD Primary Care Provider [phone] Lyubov Priest DO Primary Care Provide r Lyubov Priest DO Primary Care Provide r Daya Vu CNM Primary Care Provider [phone] Rabia Shafer MD Primary Care Provider [phone] Reason for Referral * Rehabilitation (Elective) - Closed Specialty Diagnoses / Procedures Referred By Nalini berry Referred To Contact Diagnoses Fibromyalgia Myofascial pain Carrie Swanson MBBS Phone: tel: fax: [email or web address] [address] [place] [address] Phone: tel: fax: Referral ID Status Reason Start Date Expiration Date Visits Re quested Visits Authorized [id number] Closed 09/15/2018 09/16/2019 1 1 Encounter Details Date Type Department Care Team (Latest Contact Info) Description 09/15/2018 Transcribe Orders [facility] Physical Therapy [address] [place] [address] Anabel Loya [email or web address] Fibromyalgia (Primary Dx); Myofascial pain Social History Tobacco Use Types Packs/Day Years Used Date Smoking Tobacco: Never Smokeless Tobacco: Never Comments Unknown Sex and Gender Information Value Date Recorded Sex Assigned at Not on file Legal Sex Female 3:32 PM EDT Gender Identity Not on file Sexual Orientation Not on file documented as of this encounter Plan of Treatment Scheduled Referrals Name Type Priority Associated Diagnoses Order Schedule [facility] [place] [facility] [place] [facility] Outpatient Referral Routine Fibromyalgia Myofascial pain Ordered: 09/15/2018 documented as of this encounter Visit Diagnoses Diagnosis Fibromyalgia- Primary Unspecified myalgia and myositis Myofascial pain Unspecified myalgia and myositis documented in this encounter Care Teams Contract Accountant Relationship Specialty Start Date End Date Landon Sprague MD [address] [place] [address] PCP - General Internal Medicine 07/27/18 04/26/19 Lyubov Priest DO [address] [place] [phone] PCP - General Internal Medicine 04/27/19 07/01/19 Lyubov Priest DO [address] [place] [phone] PCP - General Internal Medicine 07/02/19 06/10/23 Daya Vu CNM [address] [place] [phone] PCP - General 06/11/23 11/05/23 Rabia Shafer MD [address] [place] [address] PCP - General Internal Medicine 11/06/23 documented as of this encounter Additional Source Comments The information contained in this document represents components of the legal health record. It is not the complete legal health record.[facility]
--- OUTSIDE RECORDS SUMMARY | 2025-02-24 13:25 | XMS_ITS | Encounter Summary ---
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 It is not the complete legal health record.[facility]
--- OUTSIDE RECORDS SUMMARY | 2025-02-24 13:25 | XMS_ITS ---
Author Name [facility] Organization Unknown Care Team Organization Name Specialty Phone Email Start Date End Da te [facility] Ally Morales Primary Care 01/28/2022 11/09/2023
--- OUTSIDE RECORDS SUMMARY | 2025-02-24 13:25 | XMS_ITS | Clinical Summary ---
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 Active magnesium citrate 100 mg capsule Take 100 mg by mouth 2 (two) times a day. Active cyclobenzaprine (FLEXERIL) 5 mg tablet Take 1 tablet (5 mg total) by mouth at bedtime. Active multivitamin with minerals tablet Take 1 tablet by mouth 1 (one) time each day. Active SUMAtriptan (IMITREX) 25 mg tablet Take 1 tablet (25 mg total) by mouth 1 (one) time if needed for migraine. 9 tablet 2 5 Active SUMAtriptan (IMITREX) 25 mg tablet Take 1 tablet (25 mg total) by mouth 1 (one) time if needed. 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 I reviewed method of transmission even in the absence of lesions. I explained Valtrex can help prevent asymptomatic transmission. I recommended against intercourse with active lesions. Rx sent. 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 She reports trouble focusing, reports racing thoughts, difficulty organizing tasks and wondering if she has a component of ADD/ADHD. No SI or HI. Patient has been referred to psychiatry. Orders: Ambulatory referral to Talkiatry; Future Anxiousness 12/16/2016 Diffuse pain 12/16/2016 Chronic pain of multiple joints 11/30/2016 Migraine 11/30/2016 Eczema 01/01/2015 Encounters Date Type Department Care Team Description 02/03/2025 12:10 PM EST Lab Draw Station - [address] [phone] PE (physical exam), annual; Screen for STD (sexually transmitted disease); Vaginal itching; Thyroid nodule; Screening for STD (sexually transmitted disease) 02/03/2025 11:00 AM EST Office Visit Adult Medicine [address] [phone] Rabia Shafer MD PE (physical exam), annual (Primary Dx); Screen for STD (sexually transmitted disease); Vaginal itching; Screening for STD (sexually transmitted disease); Depression, unspecified depression type 12/27/2024 Telephone Adult Medicine [address] [phone] Rabia Shafer MD 12/27/2024 Results Follow-Up Endocrinology - [address] [phone] Reilly Mujica MD from Last 3 Months Immunizations Immunization Administration Dates Next Due DTP 10/12/1996, 6,1995,06/11 DTaP 5 pertussis antigens, D iptheria Tetanus acellular pertussis (Daptacel) 6wks to less than 7yo 04/14/2000 HPV 9-valent (Gardisil) 9yo to less than 46yo 07/10/2023,05/11/2023 HPV, Quadrivalent 11/20/2010,11/14/2009,09/06/19 10 Hepatitis B Pediatric (Enger ix B; Recombivax HB) to less than 20 yo 01/13/1996,1995,1995 HiB PRP-T conjugate (Acthib, Hiberix) 6wks and older 07/12/1996,1995,1995,06/11 IPV Inactivated polio (Ipol) 6wks and older 04/14/2000,07/13/1996,1995,08/25,1995 Influenza Quadravalent, MDCK , 0.5ml, preservative free (Flucelvax) 6mo and older 03/08/2018 MMR, measles mumps and rubel la Live (Priorix; M-M-R II) 12mo and older 04/14/2000,07/12/1996 Meningococcal MCV4P 09/05/2009 Tdap Tetanus diptheria acell ular pertussis (Boostrix; Adacel) 7yo and older 03/08/2018,09/17/2007 Varicella live (Varivax) 12m o and older 06/10/2000 Surgical History Surgery Date Site/Laterality Comments OTHER SURGICAL HISTORY PROCEDURE: DENIES PREVIOUS SURGERY Medical History Medical History Date Comments Asthma DX:Asthma; COMME NT: childhood Genital HSV DX:Genital HSV Family History Medical History Relation Name Comments No Known Problems Brother 1 No Known Problems Brother 2 No Known Problems Father No Known Problems Mother No Known Problems Sister Breast cancer Neg Hx Colon cancer Neg Hx Ovarian cancer Neg Hx Pancreatic cancer Neg Hx Prostate cancer Neg Hx Uterine cancer Neg Hx Relation Name Status Comments Brother 1 Alive Brother 2 Alive Father Alive Maternal Grandfather Maternal Grandmother Alive Mother Alive Paternal Grandfather Paternal Grandmother Sister Alive Social History Tobacco Use Types Packs/Day Years Used Date Smoking Tobacco: Never Passive Smoke Exposure: Past Smokeless Tobacco: Never Tobacco Cessation:Counseling Given: Not Answered Alcohol Use Standard Drinks/Week Comments Yes 0 (1 standard drink = 0.6 oz pur e alcohol) Housing Instability Answer Date Recorde d Are you worried that in the next 2 months you may not have stable housing? No 02/03/2025 Food Access & Nutrition Answer Date Rec orded Do you have access to a vari ety of food including fruits and vegetables? Yes 02/03/2025 Health Literacy Answer Date Recorded How often do you need to hav e someone help you when you read instructions, pamphlets, or other written material from your doctor or pharmacy? Never 02/03/2025 Caregiver: How often do you need to have someone help you when you read instructions, pamphlets, or other written material from your doctor or pharmacy? Not on file 02/03/2025 Financial Risk Answer Date Recorded How hard is it for you to pa y for the very basics like food, housing, medical care, and air conditioning / heating? Not very hard 02/03/2025 Transportation Answer Date Recorded Has the lack of transportati on kept you from meetings, work, or from getting things needed for daily living? No Has the lack of transportati on kept you from medical appointments or from getting medications? No 02/03/2025 Social Isolation Answer Date Recorded How often do you feel lonely or isolated from th ose around you? Never 02/03/2025 Food Risk Answer Date Recorded Within the past 12 months we worried whether our food would run out before we got money to buy more. Never true 02/03/2025 Within the past 12 months th e food we bought just didn't last and we didn't have money to get more. Never true 02/03/2025 Dependent Care Answer Date Recorded Do you need help finding or paying for care for your loved ones. For example, child care giver or elderly care for an older adult? No 02/03/2025 Education Answer Date Recorded Do you think completing more education or training, like finishing a GED, going to college, or learning a trade, would be helpful for you? No 02/03/2025 Employment and Income Answer Date Recor ded During the last four weeks, have you been actively looking for work? No 02/03/2025 Living Situation Answer Date Recorded What is your living situation? Unrecognized valu e 02/03/2025 Comments No Sex and Gender Information Value Date Recorded Sex Assigned at Not on file Legal Sex Female 6:00 PM EST Gender Identity Not on file Sexual Orientation Not on file Obstetrics History * This document contains information received from the source organization and may not represent a complete record from that organization. Para Term AB IAB SAB Ectopic Multiple Livin g Live Births 1 Date Outcome GA Total Labor Labor/2nd/3rd Weight Sex Type Anes PTL Eileen A1 A5 Name Clin Last Filed Vital Signs Vital Sign Reading Time Taken Comments Blood Pressure 122/82 02/03/2025 11:08 AM EST Pulse 76 02/03/2025 11:08 AM EST Temperature 36.6 C (97.8 F) 02/03/2025 11:08 AM EST Respiratory Rate 16 02/03/2025 11:08 AM EST Oxygen Saturation 98% 02/03/2025 11:08 AM EST Inhaled Oxygen Concentration - - Weight 82.6 kg (182 lb) 02/03/2025 11:08 AM EST Height 165.1 cm (5' 5 ) 02/03/2025 11:08 AM EST Body Mass Index 30.29 02/03/2025 11:08 AM EST Plan of Treatment Health Maintenance Due Date Last Done Comments COVID-19 Vaccine ( season) 2024 10/15/2020, 09/17/2020 Influenza Vaccine (#1) 2025 03/08/2018 Postp oned from 11/21/2024 (Patient Refused) Pneumococcal Vaccine: Pediatrics (0 to 5 Years) and At-Risk Patients (6 to 49 Years) (1 of 2 - PCV) 02/02/2026 Postponed from 2014 (Patient Refused) Social Influencers of Health Screening 02/03/2026 02/03/2025 Cervical Cancer Screening: Pap Smear 05/11/2026 05/11/2023, 05/11/2023, 04/20/2018 DTaP,Tdap,and Td Vaccines (8 - Td or Tdap) 03/08/2028 03/08/2018, 09/17/2007, 04/14/2000, Additional history exists Cholesterol Screening (Lipid Panel) 02/03/2030 02/03/2025, 03/08/2018 RSV Immunization Adult Patients (1 - 1-dose 75+ series) 2070 Hepatitis B Vaccines Completed 01/13/1996, 1995, 1995 HIB Vaccines Completed 07/12/1996, 10/22, 1995, Additional history exists IPV Vaccines Completed 04/14/2000, 06/22, 1995, Additional history exists MMR Vaccines Completed 04/14/2000, 07/12/1996 Varicella Vaccines Aged Out 06/10/2000 No longer eligible based on patient's age to complete this topic Meningococcal ACWY Vaccine Aged Out 09/05/2009 N o longer eligible based on patient's age to complete this topic HPV Vaccines Completed 07/10/2023, 04/23, 11/20/2010, Additional history exists Depression Screening Completed 02/03/2025 HIV Screening Completed 02/03/2025, 01/13/2023 Hepatitis C Screening Completed 02/03/2025, 019 Hepatitis A Vaccines Aged Out No long er eligible based on patient's age to complete this topic Meningococcal B Vaccine Aged Out No l onger eligible based on patient's age to complete this topic RSV Immunization Patients Under 20 months Aged Out No longer eligible based on patient's age to complete this topic Procedures Procedure Name Priority Date/Time Associated Diagnosis Comments CALIX URINE CULTURE TUBE Routine 02/04/20 12:18 PM EST Vaginal itching URINALYSIS WITH REFLEX MICROSCOPIC AND CULTURE Routine 02/03/2025 12:18 PM EST Vaginal itching CBC WITH AUTO DIFFERENTIAL Routine 02/03/2025 12:18 PM EST PE (physical exam), annual THYROID STIMULATING HORMONE Routine 02/03/2025 12:18 PM EST Thyroid nodule THYROXINE FREE Routine 02/03/2025 12:18 PM EST Thyroid nodule TRIIODOTHYRONINE TOTAL Routine 12:18 PM EST Thyroid nodule THYROID STIMULATING IMMUNOGLOBULIN Routine 02/03/2025 12:18 PM EST Thyroid nodule THYROTROPIN RECEPTOR ANTIBODY Routine 02/03/2025 12:18 PM EST Thyroid nodule VITAMIN D 25 HYDROXY Routine 02/03/2025 12:18 PM EST Thyroid nodule URINALYSIS WITH REFLEX MICROSCOPIC AND CULTURE Routine 02/03/2025 12:18 PM EST Vaginal itching TREPONEMA PALLIDUM ANTIBODY WITH REFLEX TO RPR AND PARTICLE AGGLUTINATION Routine 02/03/2025 12:18 PM EST Screen for STD (sexually transmitted disease) HIV 1, 2 ANTIBODY, P24 ANTIGEN WITH REFLEX TO DIFFERENTIATION Routine 02/03/2025 12:18 PM EST Screen for STD (sexually transmitted disease) HEPATITIS C ANTIBODY Routine 02/03/2025 12:18 PM EST Screen for STD (sexually transmitted disease) CBC AND DIFFERENTIAL Routine 02/03/2025 12:18 PM EST PE (physical exam), annual COMPREHENSIVE METABOLIC PANEL Routine 02/03/2025 12:18 PM EST PE (physical exam), annual LIPID PANEL WITH REFLEX TO DIRECT LDL Routine 02/03/2025 12:18 PM EST PE (physical exam), annual PAP SMEAR Routine 05/11/2023 from Last 3 Months or Most Recently Relevant to Health Maintenance Results * Hepatitis C antibody (02/03/2025 12:18 PM EST) Hepatitis C Antibody Negative Negative LAB CHEMISTRY METHOD 02/03/2025 5:26 PM EST [facility] Blood Venous blood specimen / Unknown Venipuncture / Unknown 02/03/2025 12:18 PM EST 02/03/2025 12:19 PM EST Rabia Shafer MD LAB BLOOD ORDERABLES Final Resul t Performing Organization Address City/[facility]/ZIP Co de Phone Number [facility] [address] [place] [address], [place] [phone] * HIV 1,2 antibody, p24 antigen with reflex to differentiation (02/03/2025 12:18 PM EST) Pathologist [facility] HIV Combo AB/AG Negative Negative LAB CHEMISTRY METHOD 02/03/2025 5:27 PM EST [facility] Blood Venous blood specimen / Unknown Venipuncture / Unknown 02/03/2025 12:18 PM EST 02/03/2025 12:19 PM EST Narrative [facility] - 02/03/2025 5:27 PM EST This assay is a 4th generation assay allowing for earlier detection of HIV infection by detecting the presence of the HIV-1 p24 antigen as well as the traditional antibodies to HIV type 1 (including group O) and type 2. Use of a 4th generation assay is the current CDC recommendation for HIV screening. us Rabia Shafer MD LAB BLOOD ORDERABLES Final Resul t Performing Organization Address City/[facility]/ZIP Co de Phone Number [facility] [address] [place] [address], [place] [phone] * Urinalysis with reflex microscopic and culture (02/03/2025 12:18 PM EST) Specific Walker Urine 1.010 1.003 - 1.030 LAB URINALYSIS - AUTOMATED METHOD 02/03/2025 3:16 PM [facility] pH, Urine 6.5 5.0 - 8.0 pH LAB URINALYSIS - AUTOMATED METHOD 02/03/2025 3:16 PM [facility] Leukocytes, Urine Negative Negative LAB URINALYSIS - AUTOMATED METHOD 02/03/2025 3:16 PM [facility] Nitrite, Urine Negative Negative LAB URINALYSIS - AUTOMATED METHOD 02/03/2025 3:16 PM [facility] Protein, Urine Negative <=Trace mg/dL LAB URINALYSIS - AUTOMATED METHOD 02/03/2025 3:16 PM [facility] Glucose, Urine Negative Negative mg/dL LAB URINALYSIS - AUTOMATED METHOD 02/03/2025 3:16 PM [facility] Ketones, Urine Negative Negative mg/dL LAB URINALYSIS - AUTOMATED METHOD 02/03/2025 3:16 PM [facility] Urobilinogen, Urine 0.2 0.2 - 1.0 mg/dL LAB URINALYSIS - AUTOMATED METHOD 02/03/2025 3:16 PM [facility] Bilirubin, Urine Negative Negative LAB URINALYSIS - AUTOMATED METHOD 02/03/2025 3:16 PM [facility] Blood, Urine Negative Negative LAB URINALYSIS - AUTOMATED METHOD 02/03/2025 3:16 PM [facility] Urine Urine specimen obtained by clean catch procedure / Unknown Non-blood Collection / Unknown 02/03/2025 12:18 PM EST 02/03/2025 12:19 PM EST Rabia Shafer MD LAB URINE ORDERABLES Final Resul t Performing Organization Address City/[facility]/ZIP Co de Phone Number [facility] [address] [place] [address], [place] [phone] * Treponema pallidum antibody with reflex to RPR and particle agglutination (02/03/2025 12:18 PM EST) T. Pallidum Antibodies Negative Negative LAB CHEMISTRY METHOD 02/03/2025 7:55 PM EST [facility] Blood Venous blood specimen / Unknown Venipuncture / Unknown 02/03/2025 12:18 PM EST 02/03/2025 12:19 PM EST Rabia Shafer MD LAB BLOOD ORDERABLES Final Resul t Performing Organization Address [facility] Co de Phone Number [facility] [address] [place] [address], [place] [phone] * Calix urine culture tube (02/03/2025 12:18 PM EST) Pathologist [facility] Extra Tube Hold for add-ons. 02/03/2025 4:01 PM EST [facility] Comment:Auto resulted. Urine Urine specimen obtained by clean catch procedure / Unknown Non-blood Collection / Unknown 02/03/2025 12:18 PM EST 02/03/2025 12:19 PM EST Rabia Shafer MD LAB URINE ORDERABLES Final Resul t Performing Organization Address [facility]/ZIP Co de Phone Number [facility] [address] [place] [address], [place] [phone] * (ABNORMAL) Lipid panel with reflex to direct LDL (02/03/2025 12:18 PM EST) Cholesterol 256(H) 0 - 200 mg/dL LAB CHEMISTRY METHOD 02/03/2025 4:05 PM EST [facility] Triglycerides 73 0 - 150 mg/dL LAB CHEMISTRY METHOD 02/03/2025 4:05 PM EST [facility] HDL 65 >=40 mg/dL LAB CHEMISTRY METHOD 02/03/2025 4:05 PM [facility] LDL Calculated 176(H) 0 - 100 mg/dL LAB CHEMISTRY METHOD 02/03/2025 4:05 PM [facility] Comment:Estimated LDL Calcul ated using equation: Total cholesterol - HDL cholesterol - (Triglycerides/5) VLDL Cholesterol Alan 14.6 mg/dL LAB CHEMISTRY METHOD 02/03/2025 4:05 PM [facility] Non HDL Chol. (LDL+VLDL) 191(H) <145 mg/dL LAB CHEMISTRY METHOD 02/03/2025 4:05 PM [facility] Chol/HDL Ratio 3.9 0.0 - 4.4 LAB CHEMISTRY METHOD 02/03/2025 4:05 PM [facility] Blood Venous blood specimen / Unknown Venipuncture / Unknown 02/03/2025 12:18 PM EST 02/03/2025 12:19 PM EST us Rabia Shafer MD LAB BLOOD ORDERABLES Final Resul t [facility] [address] [place] [address], * CBC auto differential (02/03/2025 12:18 PM EST) WBC 6.4 4.8 - 10.8 K/mcL LAB HEMETOLOGY METHOD 02/03/2025 3:13 PM [facility] RBC 4.40 3.80 - 4.80 M/mcL LAB HEMETOLOGY METHOD 02/03/2025 3:13 PM [facility] Hemoglobin 13.7 11.5 - 16.0 g/dL LAB HEMETOLOGY METHOD 02/03/2025 3:13 PM [facility] Hematocrit 40.3 35.0 - 47.0 % LAB HEMETOLOGY METHOD 02/03/2025 3:13 PM [facility] MCV 91.8 79.0 - 98.0 FL LAB HEMETOLOGY METHOD 02/03/2025 3:13 PM [facility] MCH 31.2 27.0 - 32.0 pcg LAB HEMETOLOGY METHOD 02/03/2025 3:13 PM [facility] MCHC 34.0 32.0 - 37.0 g/dL LAB HEMETOLOGY METHOD 02/03/2025 3:13 PM [facility] RDW 12.4 11.0 - 15.0 % LAB HEMETOLOGY METHOD 02/03/2025 3:13 PM [facility] Platelets 302 130 - 400 K/mcL LAB HEMETOLOGY METHOD 02/03/2025 3:13 PM [facility] MPV 10.3 7.0 - 11.0 FL LAB HEMETOLOGY METHOD 02/03/2025 3:13 PM [facility] NRBC 0.0 <1.0 % LAB HEMETOLOGY METHOD 02/03/2025 3:13 PM [facility] NRBC Absolute 0.00 <0.10 K/mcL LAB HEMETOLOGY METHOD 02/03/2025 3:13 PM [facility] Neutrophils Relative 63.2 % LAB HEMETOLOGY METHOD 02/03/2025 3:13 PM [facility] Lymphocytes Relative 27.4 % LAB HEMETOLOGY METHOD 02/03/2025 3:13 PM [facility] Monocytes Relative 8.0 % LAB HEMETOLOGY METHOD 02/03/2025 3:13 PM [facility] Eosinophils Relative 0.5 % LAB HEMETOLOGY METHOD 02/03/2025 3:13 PM EST [facility] Basophils Relative 0.6 % LAB HEMETOLOGY METHOD 02/03/2025 3:13 PM EST [facility] Immature Granulocytes Relative 0.3 % LAB HEMETOLOGY METHOD 02/03/2025 3:13 PM [facility] Neutrophils Absolute 4.04 1.50 - 7.00 K/mcL LAB HEMETOLOGY METHOD 02/03/2025 3:13 PM EST [facility] Lymphocytes Absolute 1.75 1.00 - 5.00 K/mcL LAB HEMETOLOGY METHOD 02/03/2025 3:13 PM [facility] Monocytes Absolute 0.51 0.20 - 1.00 K/mcL LAB HEMETOLOGY METHOD 02/03/2025 3:13 PM [facility] Eosinophils Absolute 0.03 0.00 - 0.50 K/mcL LAB HEMETOLOGY METHOD 02/03/2025 3:13 PM EST [facility] Basophils Absolute 0.04 0.00 - 0.20 K/mcL LAB HEMETOLOGY METHOD 02/03/2025 3:13 PM [facility] Immature Granulocytes Absolute 0.02 0.00 - 0.03 K/mcL LAB HEMETOLOGY METHOD 02/03/2025 3:13 PM [facility] Blood Venous blood specimen / Unknown Venipuncture / Unknown 02/03/2025 12:18 PM EST 02/03/2025 12:19 PM EST us Rabia Shafer MD LAB BLOOD ORDERABLES Final Resul t [facility] [address] [place] [address], * Thyroid stimulating immunoglobulin (02/03/2025 12:18 PM EST) Thyroid Stimulating Immunoglobulin <0.10 <0.10 IU/L 02/06/2025 12:44 PM EST [facility] Comment: Thyroid stimulating immunoglobulins (TSI) concentrations greater than or equal to (>=) 0.55 IU/L have a clinical sensitivity of at least 98.6%, and a clinical specificity of at least 98.5%, for the differential diagnosis of Graves' Disease. TSI concentrations for patients with other thyroid or autoimmune diseases range from 0.11 to 0.39 IU/L. Test performed at [facility], [address] [place] [address] Petra Bowman MD, PhD - Ticket Taker Blood Venous blood specimen / Unknown Venipuncture / Unknown 02/03/2025 12:18 PM EST 02/03/2025 12:19 PM EST Reilly Mujica MD LAB BLOOD ORDERABLES Final Resul t [facility] [address] [place] [address] * Thyrotropin receptor antibody (02/03/2025 12:18 PM EST) TRAB (Tsh Receptor Antibody) 1.58 <=1.75 IU/L 02/07/2025 1:49 PM EST [facility] Comment: Test performed at [facility], [address] [place] [address] Petra Bowman MD, PhD - Ticket Taker Blood Venous blood specimen / Unknown Venipuncture / Unknown 02/03/2025 12:18 PM EST 02/03/2025 12:19 PM EST Reilly Mujica MD LAB BLOOD ORDERABLES Final Resul t [facility] [address] [place] [address] * (ABNORMAL) Vitamin D 25 hydroxy (02/03/2025 12:18 PM EST) Vit D, 25-Hydroxy 23.9(L) 30.0 - 80.0 ng/mL LAB CHEMISTRY METHOD 02/03/2025 4:46 PM EST [facility] Blood Venous blood specimen / Unknown Venipuncture / Unknown 02/03/2025 12:18 PM EST 02/03/2025 12:19 PM EST us Reilly Mujica MD LAB BLOOD ORDERABLES Final Resul t Performing Organization Address City/[facility]/ZIP Co de Phone Number [facility] [address] [place] [address], [place] [phone] * Triiodothyronine total (02/03/2025 12:18 PM EST) T3, Total 93.51 60.00 - 181.00 ng/dL LAB CHEMISTRY METHOD 02/03/2025 7:43 PM EST [facility] Blood Venous blood specimen / Unknown Venipuncture / Unknown 02/03/2025 12:18 PM EST 02/03/2025 12:19 PM EST us Reilly Mujica MD LAB BLOOD ORDERABLES Final Resul t Performing Organization Address [facility] de Phone Number [facility] [address] [place] [address], [place] [phone] * Thyroid stimulating hormone (02/03/2025 12:18 PM EST) TSH 0.83 0.40 - 4.00 mcIU/mL LAB CHEMISTRY METHOD 02/03/2025 7:43 PM EST [facility] Blood Venous blood specimen / Unknown Venipuncture / Unknown 02/03/2025 12:18 PM EST 02/03/2025 12:19 PM EST us Reilly Mujica MD LAB BLOOD ORDERABLES Final Resul t Performing Organization Address City/[facility]/ZIP Co de Phone Number [facility] [address] [place] [address], [place] [phone] * Thyroxine free (02/03/2025 12:18 PM EST) Free T4 1.24 0.70 - 1.80 ng/dL LAB CHEMISTRY METHOD 02/03/2025 4:47 PM [facility] Blood Venous blood specimen / Unknown Venipuncture / Unknown 02/03/2025 12:18 PM EST 02/03/2025 12:19 PM EST us Reilly Mujica MD LAB BLOOD ORDERABLES Final Resul t [facility] [address] [place] [address], [place] [phone] * Comprehensive metabolic panel (02/03/2025 12:18 PM EST) [facility] Sodium 136 133 - 145 mmol/L LAB CHEMISTRY METHOD 02/03/2025 4:05 PM [facility] Potassium 3.7 3.5 - 5.5 mmol/L LAB CHEMISTRY METHOD 02/03/2025 4:05 PM [facility] Chloride 102 96 - 110 mmol/L LAB CHEMISTRY METHOD 02/03/2025 4:05 PM [facility] CO2 25 21 - 32 mmol/L LAB CHEMISTRY METHOD 02/03/2025 4:05 PM [facility] Anion Gap 9 3 - 11 LAB CHEMISTRY METHOD 02/03/2025 4:05 PM [facility] Glucose 91 70 - 100 mg/dL LAB CHEMISTRY METHOD 02/03/2025 4:05 PM [facility] BUN 11 5 - 25 mg/dL LAB CHEMISTRY METHOD 02/03/2025 4:05 PM [facility] Creatinine 0.70 0.50 - 1.10 mg/dL LAB CHEMISTRY METHOD 02/03/2025 4:05 PM [facility] eGFR 120 >=60 mL/min/1. 73m2 LAB CHEMISTRY METHOD 02/03/2025 4:05 PM [facility] Comment:Calculation based on the Chronic Kidney Disease Epidemiology Collaboration (CKD-EPI) equation refit without adjustment for race. BUN/Creatinine Ratio 15.7 LAB CHEMISTRY METHOD 02/03/2025 4:05 PM [facility] Calcium 8.7 8.5 - 10.5 mg/dL LAB CHEMISTRY METHOD 02/03/2025 4:05 PM [facility] AST (SGOT) 14 10 - 42 unit/L LAB CHEMISTRY METHOD 02/03/2025 4:05 PM [facility] ALT (SGPT) 19 10 - 60 unit/L LAB CHEMISTRY METHOD 02/03/2025 4:05 PM [facility] Alkaline Phosphatase 52 42 - 121 unit/L LAB CHEMISTRY METHOD 02/03/2025 4:05 PM [facility] Total Protein 7.4 6.0 - 8.0 g/dL LAB CHEMISTRY METHOD 02/03/2025 4:05 PM [facility] Albumin 4.0 3.2 - 5.0 g/dL LAB CHEMISTRY METHOD 02/03/2025 4:05 PM [facility] Total Bilirubin 0.5 0.0 - 1.4 mg/dL LAB CHEMISTRY METHOD 02/03/2025 4:05 PM [facility] Blood Venous blood specimen / Unknown Venipuncture / Unknown 02/03/2025 12:18 PM EST 02/03/2025 12:19 PM EST us Rabia Shafer MD LAB BLOOD ORDERABLES Final Resul t [facility] [address] [place] [address], * Pap smear (05/11/2023) 05/11/2023 Narrative HISTORICAL TESTING LAB RESULTING AGENCY - 06/16/2023 4:10 PM EDT [id number] THINPREP PAP, IMAGED: NEGATIVE FOR SQUAMOUS INTRAEPITHELIAL LESION AND MALIGNANCY . REACTIVE CELLULAR CHANGES. SHIFT IN HARPAL, SUGGESTIVE OF BACTERIAL VAGINOSIS. DAYLIN GABRIEL M.D. , PATHOLOGIST (CASE ELECTRONICALLY SIGNED 05 22 2023) RESULT OF APTIMA HIGH RISK HPV ASSAY: HIGH RISK HPV: NEGATIVE (SEROTYPES 16,18,31,33,35,39,45,51,52,56,58,59,66,68) COMPLETED ON 2023-06-16 ADEQUACY: SATISFACTORY ENDOCERVICAL/TRANSFORMATION ZONE COMPONENT PRESENT. SOURCE: THINPREP PAP HPV IF ASCUS, CERVICAL, IMAGED CLINICAL INFORMATION: HPV IF DIAGNOSIS OF ASCUS. 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
--- OUTSIDE RECORDS SUMMARY | 2025-02-24 13:25 | XMS_ITS | Encounter Summary ---
Author Organization [facility] Address [address] [place] [address] Care Team Providers Care Professional Caster Name Role Phone Rabia Shafer MD Primary Care Provider [phone] Encounter Details Date Type Department Care Team (Late st Contact Info) Description 12/27/2024 Results Follow-[facility] - [address] [phone] Reilly Mujica MD [address] [place] [phone] Social History Tobacco Use Types Packs/Day Years Used Date Smoking Tobacco: Never Smokeless Tobacco: Never Alcohol Use Standard Drinks/Week Comments Yes 0 (1 standard drink = 0.6 oz pur e alcohol) Comments No Sex and Gender Information Value Date Recorded Sex Assigned at Not on file Legal Sex Female 6:00 PM EST Gender Identity Not on file Sexual Orientation Not on file documented as of this encounter Plan of Treatment Not on file documented as of this encounter Visit Diagnoses Not on filedocumented in this encounter Care Teams Professional Caster Relationship Specialty Start Date End Date Rabia Shafer MD [address] [place] [address] PCP - General Internal Medicine 09/08/24 documented as of this encounter
--- OUTSIDE RECORDS SUMMARY | 2025-02-24 13:25 | XMS_ITS | Clinical Summary ---
Author Organization [facility] Address [address] [place] [phone] Phone Care Team Providers Care Fountain Vending Mechanic Name Role Phone Rabia Shafer MD Primary Care Provider [phone] Allergies Active Allergy Reactions Criticality Noted Date Comments Amitriptyline Mental Status Change 04/11/2019 emotional Other reaction(s): Mental Status Change emotional Aspartame Rash Low 07/28/2018 Other reaction(s): Rash Cyclobenzaprine Mental Status Change Low 02/05/2019 Daytime somnolence when taken during the day Other reaction(s): Mental Status Change Daytime somnolence when taken during the day Naltrexone Headaches Low 02/05/2019 Topiramate 07/02/2018 Venlafaxine Mental Status Change,Other (See Comments) 09/06/2018 Very angry, insomnia Behavioral changes and nightmares Medications famciclovir (FAMVIR) 250 MG tablet Take 250 mg by mouth 3 (three) times a day. As needed 07/30/2022 Active magnesium gluconate (MAGONATE) 500 mg (27 mg elemental) Tab Take 500 mg by mouth daily. Active cyclobenzaprine (FLEXERIL) 5 MG tabletIndicatio ns:Neck pain on left side Take 1-2 tabs every evening as needed for severe muscle spasm 15 tablet 1 11/06/2023 Active ibuprofen (ADVIL,MOTRIN) 400 MG tablet Take 400 mg by mouth 3 (three) times a day. 12/02/2023 Active famciclovir (FAMVIR) 500 MG tablet Take 1 tablet by mouth 2 (two) times a day. 12/01/2023 Active Active Problems Problem Noted Date Diagnosed Date History of Lyme disease 11/11/2023 Assessment & Plan (11/15/2023 8:17 PM EDT): I have explained to Mark that ongoing positive IgG serology (as she reported at [facility]) against the Lyme disease means that she has contracted that disease at some point in the past but not currently infected. Other headache syndrome 11/11/2023 Assessment & Plan (11/15/2023 8:19 PM EDT): Daily headaches for at least 3 months with sensation of lightheadedness and dizziness especially after long day along with reported right-sided arm weakness (not appreciated by me on exam). I have asked her to keep a detailed diary of her headaches with documentation of accompanying symptoms, location, severity, her way of managing it etc. Raynaud's disease without gangrene 11/11/2023 Assessment & Plan (11/15/2023 8:19 PM EDT): Keep warm, dress in layers. Optimize stress management strategies. Avoid vasoconstrictors in OTC products for cold/flu and sinus. NSAID long-term use 11/11/2023 Assessment & Plan (11/15/2023 8:19 PM EDT): Take the lowest dose, with least frequency, for shortest time. Remember to take it always with food. Favor topical over oral preparations. Cervical radiculopathy 09/17/2022 Assessment & Plan (10/05/2022 3:37 PM EDT): Gentle massage, ROM and stretching after warm pack or warm shower. Avoid strain, heavy lifting. Call if worse or not better Low TSH level 09/17/2022 Assessment & Plan (03/30/2023 2:50 PM EST): She is awaiting formal endocrinology consultation for further evaluation. Assessment & Plan (10/05/2022 3:40 PM EDT): She is awaiting formal endocrinology consultation for further evaluation. Vitamin D deficiency, unspecified 09/17/2022 Assessment & Plan (03/31/2023 6:59 PM EST): Serum level requested to make sure that she does not require additional supplementation to keep it in optimal range: 40-45 ng/ml. Assessment & Plan (10/05/2022 3:36 PM EDT): Serum level requested to make sure that she does not require additional supplementation to keep it in optimal range: 30-60 ng/ml. Spinal enthesopathy of cervical region Assessment & Plan (11/15/2023 8:14 PM EDT): She has not received trigger point injections from my colleague-Dr. Gallardo on 11/06/2023 that helps a bit. Assessment & Plan (11/06/2023 9:26 AM EDT): Repeat trigger point injection today as detailed in procedure note Assessment & Plan (03/31/2023 7:00 PM EST): On patient's request I agreed to inject her left cervical spinal enthesis with plain 1% lidocaine that helped her in the past per her report. Procedure: After an informed oral consent, under sterile conditions I have injected 3 cc 1% Lidocaine into Left low cervical enthesis uneventfully. Details of post-procedure care were explained to the patient in the office and given in writing. Provider: Azucena Parson MD Patient: Mark Pimentel : 1995 Date: 03/30/2023 Assessment & Plan (10/05/2022 3:38 PM EDT): On patient's request I agreed to inject her left cervical spinal entheses with plain 1% lidocaine that helped her in the past per her report. Procedure: After an informed oral consent, under sterile conditions I have injected 3 cc 1% Lidocaine into Left low cervical enthesis uneventfully. Details of post-procedure care were explained to the patient in the office and given in writing. Provider: Azucena Parson MD Patient: Mark Pimentel : 1995 Date: 09/17/2022 Cervical facet joint syndrome 04/27/2019 Assessment & Plan (07/13/2019 12:14 PM EDT): Gentle, regular ROM, stretching after warm pack or warm shower. Ergonomic alignment at her desk . Proper posture. Proper neck support during the day and at night. Disorder of sacrum 04/27/2019 Myalgia 04/27/2019 Fibromyalgia 04/11/2019 Overview (11/06/2023): Intolerance to many pharmacologic agents Assessment & Plan (11/15/2023 8:13 PM EDT): We discussed again the diagnosis of fibromyalgia, its natural history, and treatment. I have re-iterated that it is a chronic but not life threatening disease. Specifically, we discussed that treatment requires many interventions and recognition that we are often unable to get patients completely pain free. Management of fibromyalgia requires patient engagement to address any underlying depression, anxiety, or sleep disorder. Further, patients are encouraged to engage in regular physical activity. Some studies have suggested that Terence Chi is effective. Other physical activity may including water-based aerobics, walking, biking, gentle yoga etc. In terms of pharmacotherapy, there are many options, including tricyclic antidepressants, duloxetine, gabapentin or pregabalin, and cyclobenzaprine as well as other similar medications to those listed. Since she could not tolerate Lyrica, did not benefit from Cymbalta (duloxetine) I previously offered her a trial of low-dose Savella 12.5 mg daily for a week and if no side effects carefully increase to twice daily. I warned her about the possible risk of dizziness, decreased responsiveness, difficulty sleeping, agitation, dry mouth, headache, sweating, constipation etc. She was provided with the list of side effects to monitor for. She has not tried it because of concern for possible side effects. She would benefit from reading book written by Dr Sammy Leigh [employer] [facility] addressing management strategies for patients with fibromyalgia utilizing mindfulness approach. Call if problems or questions. Another useful book is Managing pain for it manages you by Dr. Nenita Donahue Assessment & Plan (11/06/2023 9:29 AM EDT): Patient did not take most recent milnacipran rx due to concern for AEs; she is reassuringly able to work FT. She should f/u with Dr. Zaidi for ongoing care. Assessment & Plan (03/31/2023 6:58 PM EST): We discussed again the diagnosis of fibromyalgia, its natural history, and treatment. I have re-iterated that it is a chronic but not life threatening disease. Specifically, we discussed that treatment requires many interventions and recognition that we are often unable to get patients completely pain free. Management of fibromyalgia requires patient engagement to address any underlying depression, anxiety, or sleep disorder. Further, patients are encouraged to engage in regular physical activity. Some studies have suggested that Terence Chi is effective. Other physical activity may including water-based aerobics, walking, biking, gentle yoga etc. In terms of pharmacotherapy, there are many options, including tricyclic antidepressants, duloxetine, gabapentin or pregabalin, and cyclobenzaprine as well as other similar medications to those listed. Since she could not tolerate Lyrica, did not benefit from Cymbalta (duloxetine) I offered her a trial of low-dose Savella 12.5 mg daily for a week and if no side effects carefully increase to twice daily. I warned her about the possible risk of dizziness, decreased responsiveness, difficulty sleeping, agitation, dry mouth, headache, sweating, constipation etc. She was provided with the list of side effects to monitor for. She would benefit from reading book written by Dr Sammy Leigh [employer] [facility] addressing management strategies for patients with fibromyalgia utilizing mindfulness approach. Call if problems or questions. Another useful book is Managing pain for it manages you by Dr. Nenita Donahue Assessment & Plan (07/13/2019 12:12 PM EDT): We discussed again the diagnosis of fibromyalgia, its natural history, and treatment. I have re-iterated that it is a chronic but not life threatening disease. Specifically, we discussed that treatment requires many interventions and recognition that we are often unable to get patients completely pain free. Management of fibromyalgia requires patient engagement to address any underlying depression, anxiety, or sleep disorder. Further, patients are encouraged to engage in regular physical activity. Some studies have suggested that Terence Chi is effective. Other physical activity may including water-based aerobics, walking, biking, gentle yoga etc. In terms of pharmacotherapy, there are many options, including tricyclic antidepressants, duloxetine, gabapentin or pregabalin, and cyclobenzaprine as well as other similar medications to those listed. Since she could not tolerate Lyrica I offered her a trial of low-dose duloxetine 20 mg daily. She would benefit from reading book written by Dr Sammy Leigh [facility] addressing management strategies for patients with fibromyalgia utilizing mindfulness approach. Call if problems or question Assessment & Plan (04/11/2019 4:27 PM EST): Based on the patient's history, physical, and review of the available laboratory and imaging results, I believe that fibromyalgia is the most accurate diagnosis. There is no evidence of an inflammatory arthritis or other connective tissue disease in this case. We discussed the diagnosis of fibromyalgia, its natural history, and treatment. Specifically, we discussed that treatment requires many interventions and recognition that we are often unable to get patients completely pain free. Management of fibromyalgia requires patient engagement to address any underlying depression, anxiety, or sleep disorder. Further, patients are encouraged to engage in regular physical activity. Some studies have suggested that Terence Chi is effective. Other physical activity may including water-based aerobics, etc. In terms of pharmacotherapy, there are many options, including tricyclic antidepressants, duloxetine, gabapentin or pregabalin, and cyclobenzaprine as well as other similar medications to those listed. In this case, the patient might try Lyrica 25 mg nightly 7 days, if ok take 2 caps nightly 7 days, if ok take 3 caps nightly Call if problems or question Hip pain, chronic, left 02/09/2019 Assessment & Plan (04/11/2019 4:27 PM EST): Use warm packs prior to gentle ROM, muscle stretching and strengthening exercises. Avoid falls, injuries, heavy lifting. Use topical cream versus patch as needed for painful spot(s). Assessment & Plan (02/20/2019 7:01 PM EST): Use warm packs prior to gentle ROM, muscle stretching and strengthening exercises. Avoid falls, injuries, heavy lifting. Use topical cream versus patch as needed for painful spot(s). Genital HSV 01/29/2019 Post viral syndrome 11/19/2018 Chronic fatigue syndrome 11/19/2018 Secondary fibromyalgia 11/19/2018 Right arm numbness 11/03/2018 Assessment & Plan (11/15/2023 8:11 PM EDT): Gentle massage, ROM and stretching after warm pack or warm shower. Avoid strain, heavy lifting. Follow closely with PT/physiatry/chiropractor. Call if worse or not better Assessment & Plan (02/20/2019 7:02 PM EST): Gentle massage, ROM and stretching after warm pack or warm shower. Avoid strain, heavy lifting. Follow closely with PT/physiatry/chiropractor. Call if worse or not better Assessment & Plan (11/22/2018 10:54 AM EDT): Gentle massage, ROM and stretching after warm pack or warm shower. Avoid strain, heavy lifting. Call if worse or not better Neck pain on left side 09/06/2018 Assessment & Plan (11/06/2023 9:28 AM EDT): Repeat trigger point injection today as detailed in procedure note; rx for cyclobenzaprine sent after d/w patient of documented mental status change caused by this medication. I have referred her to [facility] for ongoing care of this non-inflammatory pain. Given that her PCP was unable to re-refer her to neurology, reportedly based on nl imaging, I explained to her that an additional neurology referral is not something I am able to facilitate today. Assessment & Plan (10/05/2022 3:40 PM EDT): Continue proper posture, ergonomic alignment at her work desk. Avoid prolonged neck flexion or extension. Proper neck support during the day and nighttime. Use warm packs versus warm shower prior to gentle, regular ROM, stretching and muscle strengthening as directed by PT. She may benefit from topical Arnica, Biofreeze versus Voltaren versus medicated patches such as Salonpas or IcyHot patch carefully. Assessment & Plan (04/11/2019 4:28 PM EST): Gentle, regular ROM, stretching after warm pack or warm shower. Ergonomic alignment at her desk . Proper posture. Proper neck support during the day and at night. Assessment & Plan (02/20/2019 7:14 PM EST): Gentle, regular ROM, stretching after warm pack or warm shower. Ergonomic alignment at her desk . Proper posture. Proper neck support during the day and at night. Assessment & Plan (11/22/2018 10:54 AM EDT): On patient's request I agreed to inject her left sided lower cervical paraspinal trigger point with lidocaine. Procedure: After an informed oral consent, under sterile conditions using Ethyl chloride spray for local anesthesia I have injected 3 cc 1% Lidocaine into left sided lower paraspinal trigger point uneventfully. Details of post-procedure care were explained to the patient in the office and given in writing. Gentle, regular ROM, stretching after warm pack or warm shower. Ergonomic alignment at her desk at work and at home. Proper posture. Proper neck support during the day and at night. Assessment & Plan (10/03/2018 10:38 AM EDT): On patient's request I agreed to inject her left sided lower cervical paraspinal trigger point with lidocaine. Procedure: After an informed oral consent, under sterile conditions using Ethyl chloride spray for local anesthesia I have injected 3 cc 1% Lidocaine into left sided lower paraspinal trigger point uneventfully. Details of post-procedure care were explained to the patient in the office and given in writing. Gentle, regular ROM, stretching after warm pack or warm shower. Ergonomic alignment at her desk at work and at home. Proper posture. Proper neck support during the day and at night. Tension headache 09/06/2018 Assessment & Plan (09/17/2022 11:53 AM EDT): Work closely with her neurologist to develop most successful strategy for reducing frequency and severity of her headaches. Keep a diary of headaches with modifying factors/triggers etc. Assessment & Plan (07/13/2019 11:55 AM EDT): Work closely with her neurologist to develop most successful strategy for reducing frequency and severity of her headaches. Keep a diary of headaches with modifying factors/triggers etc. Assessment & Plan (04/12/2019 10:34 PM EST): Work closely with her neurologist to develop most successful strategy for reducing frequency and severity of her headaches. Keep a diary of headaches with modifying factors/triggers etc. Assessment & Plan (02/20/2019 6:59 PM EST): Work closely with her neurologist to develop most successful strategy for reducing frequency and severity of her headaches. Keep a diary of headaches with modifying factors/triggers etc. On patient's request I agreed to inject left-sided trapezial trigger points that provided appreciable relief for her in the past Assessment & Plan (11/22/2018 10:52 AM EDT): Work closely with her neurologist to develop most successful strategy for reducing frequency and severity of her headaches. Keep a diary of headaches with modifying factors/triggers etc. Assessment & Plan (10/03/2018 10:31 AM EDT): Work closely with her neurologist to develop most successful strategy for reducing frequency and severity of her headaches. Keep a diary of headaches with modifying factors/triggers etc. Other insomnia 09/06/2018 Assessment & Plan (11/22/2018 10:52 AM EDT): Sleep hygiene. Listen to relaxation tapes prior to bed rest and every time she wakes up. If no side effects carefully continue melatonin 5-7.5 or even 10 mg nightly. Await formal sleep study. Assessment & Plan (10/03/2018 10:32 AM EDT): Sleep hygiene. Listen to relaxation tapes prior to bed rest and every time she wakes up. If no side effects carefully continue melatonin 5-7.5 or even 10 mg nightly. Await formal sleep study. Burning pain 09/06/2018 Assessment & Plan (02/20/2019 7:09 PM EST): On patient's request I agreed to inject most tender points over the left shoulder and neck region. Procedure: After an informed oral consent, under sterile conditions using Ethyl chloride spray for local anesthesia I have injected 1.5 cc 1% Lidocaine into 3 trigger points on posterior Left trapezial ridge,toward shoulder blade uneventfully. Details of post-procedure care were explained to the patient in the office and given in writing. She is willing to re-try amitriptyline at 5 mg nightly x 7 days and if no side effects increase to 10 mg nightly with the hope of reducing her burning pain and achy joints to help her sleep better She was provided with a list of side effects to watch for and explained that it may take 4-6 weeks for the full effect. Assessment & Plan (11/22/2018 10:56 AM EDT): Carefully try topical capsaicin/Zostrix 2-3 times daily x 3 weeks as needed. If no side effects continue gabapentin at current dose hoping for building up the benefit. Assessment & Plan (10/03/2018 10:40 AM EDT): Carefully try topical capsaicin/Zostrix 2-3 times daily x 3 weeks as needed. If no side effects continue gabapentin at current dose hoping for improving benefit. Vitamin D insufficiency 09/06/2018 Assessment & Plan (11/15/2023 8:11 PM EDT): Continue weekly vitamin D 50,000 units to keep it in optimal serum range: 40-45 ng/ml. Assessment & Plan (07/13/2019 11:54 AM EDT): [place] d 82703 units once a week Assessment & Plan (04/11/2019 4:29 PM EST): Take weekly vit d 00454 units once a week Assessment & Plan (02/20/2019 6:58 PM EST): Continue proper supplementation to replace the deficit. Assessment & Plan (11/22/2018 10:52 AM EDT): Continue proper supplementation to replace the deficit. Chronic fatigue 09/06/2018 Chronic migraine without aur a without status migrainosus, not intractable 02/12/2018 Vitamin D deficiency 02/16/2017 Depression 12/16/2016 Assessment & Plan (07/13/2019 12:14 PM EDT): Encouraged to follow regular relaxation/meditation sessions. Carefully try Cymbalta 20 mg daily. Sleep hygiene. Well-balanced nutritionally diet. Proper hydration. Gentle, regular exercise routine. Keep engaged in regular hobbies/favorite activities. Keep looking for personal psychotherapist that she feels comfortable working with. 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 Not on file Not on file Not on lyn[place] e Last Filed Vital Signs Vital Sign Reading Time Taken Comments Blood Pressure 114/71 12/21/2023 6:20 PM EDT Pulse 64 12/21/2023 6:20 PM EDT Temperature 36.6 C (97.8 F) 12/21/2023 6:20 PM EDT Respiratory Rate 16 12/21/2023 6:20 PM EDT Oxygen Saturation 98% 12/21/2023 6:20 PM EDT Inhaled Oxygen Concentration - - Weight 74.8 kg (164 lb 12.8 oz) 024 10:00 AM EDT Height 164 cm (5' 4.57 ) 11/11/2023 10: 00 AM EDT Body Mass Index 27.79 11/11/2023 10:00 AM EDT Plan of Treatment Health Maintenance Due Date Last Done Comments HEPATITIS C SCREENING 2013 HIV ONE-TIME SCREENING (18-6 5 YEARS) 2013 PAP SMEAR 2016 DEPRESSION SCREENING 10/14/2019 10/13/2018, 10/13/2018 INFLUENZA VACCINE (#1) 2024 03/08/2018 COVID-19 VACCINE (2024-04 6 season) 2024 10/15/2020, 09/17/2020 Adult Td,Tdap Booster 03/08/2028 03/08/2018 , 09/17/2007 SMOKING STATUS SCREENING (On ce After 26 Yrs) Completed 12/21/2023 HEPATITIS A VACCINES Aged Out No long er eligible based on patient's age to complete this topic HIB VACCINES Aged Out No longer eligi ble based on patient's age to complete this topic MENINGOCOCCAL VACCINES (ACWY) Aged Out No longer eligible based on patient's age to complete this topic MENINGOCOCCAL VACCINES (B) Aged Out N o longer eligible based on patient's age to complete this topic PNEUMOCOCCAL VACCINES (0-49 years) Aged Out No longer eligible b ased on patient's age to complete this topic Medical Devices Not on file Insurance AETNA HMO POS EPO AETNA O POS EPO AETNA O POS EPO AETNA O POS EPO [facility] EPO [facility] Care Teams Fountain Vending Mechanic Relationship Specialty Start Date End Date Rabia Shafer MD [address] [place] [id number] PCP - General Internal Medicine 11/06/23 Additional Source Comments The information contained in this document represents components of the legal health record. It is not the complete legal health record.[facility]
--- OUTSIDE RECORDS SUMMARY | 2025-02-24 13:25 | XMS_ITS | Encounter Summary ---
Author Organization [facility] Address [address] [place] [phone] Phone Care Team Providers Care Conservation Assistant Name Role Phone Majo Estevez MD Primary Care Provider [phone] Encounter Details Date Type Department Care Team (Late st Contact Info) Description 01/22/2017 Conversion Encounter [facility] [place] [address] [place] [address] Social History Tobacco Use Types Packs/Day Years [...] on filedocumented in this encounter Care Teams Conservation Assistant Relationship Specialty Start Date End Date Majo Estevez MD [address] [place] [address] PCP - General 10/31/16 06/23/22 documented as of this encounter
== END 2025-02-24 11:55 | disposition home or self-care (01) ==
LOC: HO.HPHYS 10:54
PROVIDERS: Visit Provider Physician Assistant
DX: M79.10 Myalgia, unspecified site (principal); M54.2 Cervicalgia
CPT/HCPCS: 99213